=== PATIENT | female | born 1955 | race Caucasian/White ===

== ENCOUNTER 2018-01-28 08:05 | Day surgery (SDC) | payer OTHER ==
[~2018-01-28 08:05] MED LIST: AMLO5; ASPI81CH PO; ASPI81EC; CALGLU500; Coq-1030 MG PO; DIGO.25 PO; DILT180ER PO; EZET10-40 PO; FENO145 PO; FIBER GUMMIES1 EACH PO; FISH OIL PO; FISH1000; FLAX PO; GLUC500 PO; HYDACE5 PO; LISI20; LISI20 PO; LORA1 PO; METO50ER PO; MULVITMINF; Multi-Day Vita1 EACH PO; PROM25 PO; PSYL5.85P; RED YEAST RICE PO; ROXICODONE5 MG PO; XARELTO20 MG PO; [UNRECOGNIZED DRUG - REMARK]
[2018-02-01] MEDS ORDERED: POTCHL10ER PO (13:38)
[2018-02-01] MEDS ORDERED: FURO40 PO (13:38)
== END 2018-01-28 22:50 | disposition home or self-care (01) ==
LOC: MOI MAM 08:05
PROC: BH01ZZZ Plain Radiography of Left Breast (ICD-10-PCS; principal; 2018-01-28)
DX: C50.912 Malignant neoplasm of unspecified site of left female breast (principal)
CPT/HCPCS: 19281

== ENCOUNTER → 2018-07-06 | Outpatient (CLI) | payer OTHER ==
[~2018-07-06] MED LIST changes: +FURO40 PO; +POTCHL10ER PO
== END | disposition home or self-care (01) ==
LOC: LAB SHORT 10:59 → PLD 10:59
DX: D22.5 Melanocytic nevi of trunk (principal)
CPT/HCPCS: 88305

== ENCOUNTER → 2019-01-06 | Outpatient (CLI) | payer OTHER ==
[2019-01-06 13:51] LABS: BASOPHILS ABSOLUTE AUTO 0.05 K/mm3 (0.00-0.23); BASOPHILS PERCENT AUTO 1 % (0-2); EOSINOPHILS ABSOLUTE AUTO 0.03 K/mm3 (0.00-0.68); EOSINOPHILS PERCENT AUTO 1 % (0-6); Hematocrit 44.3 % (33.0-51.0); Hemoglobin 14.7 g/dL (11.5-16.0); IMMATURE GRAN ABSOLUTE AUTO 0.04 K/mm3 (0.00-0.10); IMMATURE GRAN PERCENT AUTO 1 % (0-1); LYMPHOCYTES ABSOLUTE AUTO 1.03 K/mm3 (0.84-5.20); LYMPHOCYTES PERCENT AUTO 18 % (21-46); MONOCYTES ABSOLUTE AUTO 0.55 K/mm3 (0.16-1.47); MONOCYTES PERCENT AUTO 10 % (4-13); Mean Corpuscular HGB 31.6 pg (26.0-34.0); Mean Corpuscular HGB Conc 33.2 g/dL (31.5-36.5); Mean Corpuscular Volume 95 fL (80-100); Mean Platelet Volume 11.1 fL (9.1-12.4); NEUTROPHILS ABSOLUTE AUTO 3.92 K/mm3 (1.96-9.15); NEUTROPHILS PERCENT AUTO 70 % (41-73); Platelet Count 232 K/mm3 (150-400); RDW Coefficient Variation 12.5 % (11.7-14.2); RDW Standard Deviation 43.7 fL (35.1-46.3); Red Blood Cell Count 4.65 M/mm3 (3.80-5.20); White Blood Cell Count 5.62 K/mm3 (4.00-11.30)
[2019-01-06 14:09] LABS: Alanine Aminotransfer (ALT/SGP 64 U/L (12-78); Albumin, Blood 4.1 g/dL (3.4-5.0); Albumin/Globulin Ratio 1.1 (0.8-1.8); Alk Phos 83 U/L (50-136); Anion Gap 9 mmol/L (6-16); Aspartate Aminotrans (AST/SGOT 63 U/L (12-37); Bilirubin, Total 0.9 mg/dL (0.1-1.0); Blood Urea Nitrogen 12 mg/dL (8-24); Bun/Creatinine Ratio 15.7 (12.0-20.0); CHOL/HDL RATIO 5.8; CO2, Blood 28 mmol/L (21-32); Chloride, Blood 97 mmol/L (98-108); Cholesterol 328 mg/dL (50-200); Creatinine, Blood 0.76 mg/dL (0.40-1.00); Globulin, Blood 3.9 g/dL (2.2-4.0); Glomerular Filtration Rate >60 (60-); Glucose, Blood 99 mg/dL (70-99); HDL Cholesterol 57 mg/dL (>39); Potassium, Blood 4.4 mmol/L (3.5-5.5); Sodium, Blood 134 mmol/L (136-145); Very Low Density Lipoprot Chol 42 mg/dL (6-32)
[2019-01-06 14:10] LABS: Low Density Lipoprotein Chol 229 mg/dL (0-110); Triglycerides 211 mg/dL (30-160)
== END | disposition home or self-care (01) ==
LOC: EDSTATUS 11:19 → LAB 13:20 → LAB SHORT 13:20
PROVIDERS: Hospitalist
DX: E78.2 Mixed hyperlipidemia (principal); I10 Essential (primary) hypertension
CPT/HCPCS: 80053; 80061; 85025

== ENCOUNTER 2019-02-08 08:07 | Day surgery (SDC) | payer OTHER ==
[~2019-02-08] VITALS: Ht 165.1 cm; Wt 87.0 kg
--- NOTE | 2019-02-08 09:23 | NUR ---
02/08/19 0923 Nataliya Gregorio 1 MISSED IV BY LORENA IN RH VALVE 1 GOOD IV IN RW BY LORENA PT TOW
== END 2019-02-08 10:35 | disposition home or self-care (01) ==
LOC: ORSCSDS 08:07
PROVIDERS: Internal Medicine Gastroenterology
PROC: 0DBK8ZX Excision of Ascending Colon, Via Natural or Artificial Opening Endoscopic, Diagnostic (ICD-10-PCS; principal; 2019-02-08 09:30)
PROC: 0DBN8ZX Excision of Sigmoid Colon, Via Natural or Artificial Opening Endoscopic, Diagnostic (ICD-10-PCS; principal; 2019-02-08 09:30)
DX: Z12.11 Encounter for screening for malignant neoplasm of colon (principal); D12.2 Benign neoplasm of ascending colon; D12.5 Benign neoplasm of sigmoid colon; K57.30 Diverticulosis of large intestine without perforation or abscess without bleeding; K64.8 Other hemorrhoids; I10 Essential (primary) hypertension; Z87.891 Personal history of nicotine dependence; Z79.899 Other long term (current) drug therapy
CPT/HCPCS: 88305; J0330; J0461; J2405; J2704; J7120

== ENCOUNTER 2020-11-20 21:28 | Inpatient (IN) | payer OTHER ==
[~2020-11-20] VITALS: Ht 165.1 cm; Wt 77.6 kg
[~2020-11-20 21:28] MED LIST changes: -DIGO.25 PO; +DIGOX250 MCG PO; +DILTIAZEM 24HR240 M3 PO; +FURO20 PO; +MULTI VITAMIN1 EACH PO; -Multi-Day Vita1 EACH PO; +POTA10T PO; +XARELTO20 M1 PO
[2020-11-20] MEDS ORDERED: MERIBIN5 M1 PO (21:55)
[2020-11-21 00:45] LABS: BASOPHILS ABSOLUTE AUTO 0.05 K/mm3 (0.00-0.23); BASOPHILS PERCENT AUTO 1 % (0-2); EOSINOPHILS ABSOLUTE AUTO 0.01 K/mm3 (0.00-0.68); EOSINOPHILS PERCENT AUTO 0 % (0-6); Hematocrit 31.8 % (33.0-51.0); Hemoglobin 10.9 g/dL (11.5-16.0); IMMATURE GRAN ABSOLUTE AUTO 0.05 K/mm3 (0.00-0.10); IMMATURE GRAN PERCENT AUTO 1 % (0-1); LYMPHOCYTES ABSOLUTE AUTO 1.26 K/mm3 (0.84-5.20); LYMPHOCYTES PERCENT AUTO 15 % (21-46); MONOCYTES ABSOLUTE AUTO 0.61 K/mm3 (0.16-1.47); MONOCYTES PERCENT AUTO 7 % (4-13); Mean Corpuscular HGB 31.9 pg (26.0-34.0); Mean Corpuscular HGB Conc 34.3 g/dL (31.5-36.5); Mean Corpuscular Volume 93 fL (80-100); Mean Platelet Volume 10.6 fL (9.1-12.4); NEUTROPHILS ABSOLUTE AUTO 6.46 K/mm3 (1.96-9.15); NEUTROPHILS PERCENT AUTO 77 % (41-73); Platelet Count 252 K/mm3 (150-400); RDW Coefficient Variation 12.7 % (11.7-14.2); RDW Standard Deviation 43.1 fL (35.1-46.3); Red Blood Cell Count 3.42 M/mm3 (3.80-5.20); White Blood Cell Count 8.44 K/mm3 (4.00-11.30)
[2020-11-21 01:00] LABS: Alanine Aminotransfer (ALT/SGP 51 U/L (12-78); Albumin, Blood 3.3 g/dL (3.4-5.0); Albumin/Globulin Ratio 0.9 (0.8-1.8); Alk Phos 79 U/L (50-136); Anion Gap 13 mmol/L (6-16); Aspartate Aminotrans (AST/SGOT 55 U/L (12-37); Bilirubin, Total 0.5 mg/dL (0.1-1.0); Blood Urea Nitrogen 4 mg/dL (8-24); Bun/Creatinine Ratio 7.6 (12.0-20.0); CO2, Blood 23 mmol/L (21-32); Calcium, Blood 8.3 mg/dL (8.5-10.1); Chloride, Blood 102 mmol/L (98-108); Creatinine, Blood 0.53 mg/dL (0.40-1.00); Ethanol (Alcohol), Blood, Med 286 mg/dL; Globulin, Blood 3.8 g/dL (2.2-4.0); Glomerular Filtration Rate >60 (60-); Glucose, Blood 82 mg/dL (70-99); Potassium, Blood 3.7 mmol/L (3.5-5.5); Sodium, Blood 138 mmol/L (136-145); Total Protein, Blood 7.1 g/dL (6.4-8.2); Troponin I 0.034 ng/mL (0.000-0.040)
--- NOTE | 2020-11-21 04:54 | NUR ---
ADMIT & SHIFT SUMMARY PT TO UNIT FROM ED. AXO BUT NOTED TO BE UNDE THE INFLUENCE, ETHYL ALCOHOL >200 UPON ADMISSION. PT COOPERATIVE AND NONIMPULSIVE AND ANSWERS MOST QUESTIONS APPROPRIATELY. PT ON CARDIZRM GTT 5 ON ADMISSION, QUICKLY TITRATED UP JORGE ALBERTO 15MG/HR TO MAINTAIN HR <120. BP STABLE WITH THIS. PT ON RA. ADMISSION COMPLETED TO [facility] OF ABILITY GIVEN PT COGNITIVE STATUS. PT ASYMPTOMATIC TO AFIB. STATES HAVING "6 GLASSES OF WINE" BEFORE BEING ADMITTED. BED ALARM IN PLACE AND PT UNDERSTANDING OF THIS. KCL INFUSING ALONG WITH BANNANA BAG. NEW IV PLACED. PT EDUCATED TO HOSITAL POLICY/PROTOCOL. PT RESTING SINCE ADMISSION COMPLETED. WILL CONTINUE TO MONITOR UNTIL SHIFT CHANGE.
[2020-11-21 06:22] LABS: BASOPHILS ABSOLUTE AUTO 0.04 K/mm3 (0.00-0.23); BASOPHILS PERCENT AUTO 1 % (0-2); EOSINOPHILS ABSOLUTE AUTO 0.01 K/mm3 (0.00-0.68); EOSINOPHILS PERCENT AUTO 0 % (0-6); Hematocrit 32.2 % (33.0-51.0); Hemoglobin 11.1 g/dL (11.5-16.0); IMMATURE GRAN ABSOLUTE AUTO 0.03 K/mm3 (0.00-0.10); IMMATURE GRAN PERCENT AUTO 0 % (0-1); LYMPHOCYTES ABSOLUTE AUTO 1.03 K/mm3 (0.84-5.20); LYMPHOCYTES PERCENT AUTO 14 % (21-46); MONOCYTES ABSOLUTE AUTO 0.46 K/mm3 (0.16-1.47); MONOCYTES PERCENT AUTO 6 % (4-13); Mean Corpuscular HGB 31.8 pg (26.0-34.0); Mean Corpuscular HGB Conc 34.5 g/dL (31.5-36.5); Mean Corpuscular Volume 92 fL (80-100); Mean Platelet Volume 9.5 fL (9.1-12.4); NEUTROPHILS ABSOLUTE AUTO 6.05 K/mm3 (1.96-9.15); NEUTROPHILS PERCENT AUTO 80 % (41-73); Platelet Count 208 K/mm3 (150-400); RDW Coefficient Variation 12.8 % (11.7-14.2); Red Blood Cell Count 3.49 M/mm3 (3.80-5.20); White Blood Cell Count 7.62 K/mm3 (4.00-11.30)
[2020-11-21 06:41] LABS: Alanine Aminotransfer (ALT/SGP 47 U/L (12-78); Albumin, Blood 3.2 g/dL (3.4-5.0); Albumin/Globulin Ratio 0.8 (0.8-1.8); Alk Phos 75 U/L (50-136); Anion Gap 11 mmol/L (6-16); Aspartate Aminotrans (AST/SGOT 51 U/L (12-37); Bilirubin, Total 0.6 mg/dL (0.1-1.0); Blood Urea Nitrogen 4 mg/dL (8-24); Bun/Creatinine Ratio 7.8 (12.0-20.0); CO2, Blood 23 mmol/L (21-32); CPK Creatine Kinase 127 U/L (26-193); Calcium, Blood 8.2 mg/dL (8.5-10.1); Chloride, Blood 104 mmol/L (98-108); Creatinine, Blood 0.52 mg/dL (0.40-1.00); Globulin, Blood 3.8 g/dL (2.2-4.0); Glomerular Filtration Rate >60 (60-); Glucose, Blood 88 mg/dL (70-99); Potassium, Blood 4.2 mmol/L (3.5-5.5); Sodium, Blood 138 mmol/L (136-145); Troponin I 0.032 ng/mL (0.000-0.040)
[2020-11-21 06:58] LABS: Digoxin (Lanoxin) 0.21 ug/mL (0.80-2.00)
--- NOTE | 2020-11-21 08:40 | NUR ---
CARDIZEM DECREASED 10ML/HR FOR HR NOW 90-110.
--- NOTE | 2020-11-21 13:48 | NUR ---
CARDIZEM DECREASED TO 5ML/HR FOLLOWING SECOND DIG LOADING DOSE. CURRENT RATE 90-110.
--- NOTE | 2020-11-21 15:17 | NUR ---
echocardiogram complete
[2020-11-21 15:27] LABS: Troponin I 0.022 ng/mL (0.000-0.040)
--- NOTE | 2020-11-21 17:56 | NUR ---
SHIFT SUMMARY: ASSUMED CARE AT 0700, REPORT FROM CAROLYN MUIR. A/A/OX3 WITH INTERMITANT CONFUSION. CIWA 5-9, MEDICATING PER ORDERS. UNABLE TO URINATE DURING SHIFT, BLADDER SCAN ORDERED Q6 WITH STRAIGHT CATH >450. STRAIGHT CATH DURING SHIFT X1. REPOSITIONS SELF IN BED BUT UNABLE TO STAND OR SIT UNASSISTED DUE TO TREMORS. INTERMITANT CONFUSION IN AFTERNOON. VSS, REMAINS IN AFIB WITH HR 80-90. DIG LOADED TODAY PER ORDERS. SARAH PERSAUD DC'D AT 1430. WILL CONTINUE TO TREAT AND MONITOR UNTIL CHANGE OF SHIFT.
[2020-11-22 04:03] LABS: BASOPHILS ABSOLUTE AUTO 0.02 K/mm3 (0.00-0.23); BASOPHILS PERCENT AUTO 0 % (0-2); EOSINOPHILS ABSOLUTE AUTO 0.04 K/mm3 (0.00-0.68); EOSINOPHILS PERCENT AUTO 1 % (0-6); IMMATURE GRAN ABSOLUTE AUTO 0.02 K/mm3 (0.00-0.10); IMMATURE GRAN PERCENT AUTO 0 % (0-1); LYMPHOCYTES ABSOLUTE AUTO 0.53 K/mm3 (0.84-5.20); LYMPHOCYTES PERCENT AUTO 9 % (21-46); MONOCYTES ABSOLUTE AUTO 0.41 K/mm3 (0.16-1.47); MONOCYTES PERCENT AUTO 7 % (4-13); Mean Corpuscular HGB 31.2 pg (26.0-34.0); Mean Corpuscular HGB Conc 33.3 g/dL (31.5-36.5); Mean Corpuscular Volume 94 fL (80-100); Mean Platelet Volume 9.6 fL (9.1-12.4); NEUTROPHILS ABSOLUTE AUTO 5.17 K/mm3 (1.96-9.15); NEUTROPHILS PERCENT AUTO 84 % (41-73); Platelet Count 157 K/mm3 (150-400); RDW Coefficient Variation 12.6 % (11.7-14.2); Red Blood Cell Count 3.21 M/mm3 (3.80-5.20); White Blood Cell Count 6.19 K/mm3 (4.00-11.30)
[2020-11-22 04:25] LABS: Albumin, Blood 2.8 g/dL (3.4-5.0); Anion Gap 6 mmol/L (6-16); Blood Urea Nitrogen 5 mg/dL (8-24); Bun/Creatinine Ratio 8.8 (12.0-20.0); CO2, Blood 27 mmol/L (21-32); Calcium, Blood 8.3 mg/dL (8.5-10.1); Chloride, Blood 100 mmol/L (98-108); Creatinine, Blood 0.57 mg/dL (0.40-1.00); Glomerular Filtration Rate >60 (60-); Glucose, Blood 88 mg/dL (70-99); Magnesium, Blood 2.3 mg/dL (1.6-2.4); Phosphorus, Blood 3.5 mg/dL (2.5-4.9); Potassium, Blood 3.6 mmol/L (3.5-5.5); Sodium, Blood 133 mmol/L (136-145)
--- NOTE | 2020-11-22 05:14 | NUR ---
SHIFT SUMMARY PT WAS ALERT AND ORIENTED AT START OF SHIFT, ABLE TO ANSWER QUESTIONS APPROPRIATELY WITH MINIMAL CONFUSION. PT BECAME MORE CONFUSED AND AGITATED T/O THE NIGHT. PT BEGAN CALLING OUT FOR PEOPLE THAT WERE NOT AROUND AND TALKING RANDOMLY WITH NO MEANING. PT WAS TAKING HER CLOTHS OFF AND MOVING LEGS HER OFF OF THE BED IF SHE WERE GOING TO GET OUT OF BED. BED ALARM WAS ON. CIWA SCORES RANGED FROM 8 TO 12 WITH SCORES OF 12 THIS AM. PT HAD SIGNIFICANT TREMORS T/O THE NIGHT, DENIED ANY N/V OR HEADACHE. PRN MEDICATIONS WERE GIVEN TO AIDE WITH SYMPTOMS AND PT HAD A REDUCTION IN SYMPTOMS. PT WAS ABLE TO VOID ON THE BEDPAN ONE TIME AT START OF SHIFT, AFTER THAT PT WAS UNABLE TO VOID AND CONTINUOUSLY STSTING SHE HAD TO URINATE. PT WAS BLADDER SCANNED WITH THE LARGEST AMOUNT SHOWING AROUND 490ML, PT STATED SHE DOES NOT FEEL THE NEED TO VOID. VITALS STABLE. BP 147-151 SYSTOLIC. HR 80-90'S IN AFIB. O2 SATS 90'S ON ROOM AIR. PT CURRENTLY RESTING IN BED.
--- NOTE | 2020-11-22 18:07 | NUR ---
SHIFT SUMMARY PT HAS REMAINED ALERT AND ORIENTED TO SELF, PLACE, AND FOLLOWING DIRECTIONS. CIWA WAS AROUND 10 THIS AM AND HAS DECREASED TO 3 THIS AFTERNOON. VS STABLE. HR HAS BEEN AFIB IN THE 80'S. BP STABLE. PT DENIES ANY PAIN AT REST, BUT COMPLAINS OF PAIN TO RIGHT HIP WITH REPOSITIONING. PT UNABLE TO VOID THIS AM ON THE BED JOLLY AND WAS STRAIGHT CATHED. PT ABLE TO VOID ON BED JOLLY THIS EVENING. BED ALARM ON FOR SAFETY. WILL CONTINUE TO MONITOR CLOSELY AND REPORT TO ONCOMING RN. CALL LIGHT IN REACH.
[2020-11-23 04:00] LABS: Hematocrit 30.9 % (33.0-51.0); Hemoglobin 10.4 g/dL (11.5-16.0)
[2020-11-23 04:22] LABS: Albumin, Blood 2.5 g/dL (3.4-5.0); Anion Gap 7 mmol/L (6-16); Blood Urea Nitrogen 4 mg/dL (8-24); Bun/Creatinine Ratio 7.1 (12.0-20.0); CO2, Blood 26 mmol/L (21-32); Calcium, Blood 8.1 mg/dL (8.5-10.1); Chloride, Blood 103 mmol/L (98-108); Creatinine, Blood 0.56 mg/dL (0.40-1.00); Glomerular Filtration Rate >60 (60-); Glucose, Blood 79 mg/dL (70-99); Phosphorus, Blood 3.7 mg/dL (2.5-4.9); Potassium, Blood 3.6 mmol/L (3.5-5.5); Sodium, Blood 136 mmol/L (136-145)
--- NOTE | 2020-11-23 06:13 | NUR ---
SHIFT SUMMARY PT HAD MORE MILD WITHDRAW SYMPTOMS THAN PREVIOUS NOC SHIFT. HIGH CIWA SCORE OF 9 NEAR START OF SHIFT, LIBRIUM GIVEN AND PT SLEPT T/O THE REST OF THE NIGHT. THIS AM PT REPORTED FEELING WELL WITH NO SYMPTOMS. PT ABLE TO VOID URINE NEAR START OF SHIFT, UNABLE TO VOID T/O THE REST OF THE SHIFT. THIS AM BLADDERSCAN SHOWED >500ML, STRAIGHT CATHED PT AND HAD 700ML OUT. VITALS WERE STABLE WITH BP 140'S SYSTOLIC. HR 60-70'S. O2 SATS >95% ON ROOM AIR. PT HAD AN UNEVENTFUL NIGHT.
--- NOTE | 2020-11-23 17:00 | NUR ---
SUMMARY NO ACUTE CHANGES T/O SHIFT. CIWA 0 THIS AFTERNOON. VOIDED ONCE THIS SHIFT. STATED DOES NOT FEEL NEED TO GO AT THIS TIME, PLANNING TO ATTEMPT VOID AFTER DINNER. PLAN TO BS IF PT UNABLE TO VOID. CALL LIGHT IN REACH.
--- NOTE | 2020-11-24 05:47 | NUR ---
SHIFT SUMMARY PT HAD A QUIET UNEVENTFUL NIGHT. PT REPORTED FEELING BETTER THAN PREVIOUS NOC SHIFT WITH NO WITHDRAW SYMPTOMS. CIWA SCORES OF 0. NO PRN MEDICATIONS GIVEN FOR WITHDRAW. VITALS WERE STABLE WITH BP 130-140'S SYSTOLIC. HR WAS CONTROLLED AT 60-70'S. O2 SATS >90% ON ROOM AIR. PT UP TO BSC WITH TWO PERSON ASSIST. LEGS SHAKEY, PT WEAK BUT ABLE TO STAND AND PIVOT WITH WALKER. PT ABLE TO VOID URINE AT START OF SHIFT, BLADDER SCAN AT ABOUT 0200 SHOWED AROUND 200ML, PT UNABLE TO VOID. PT NOT DRINKING ANY FLUIDS DUE TO NOT WANTING TO HAVE TO URINATE. PT ENCOURAGED TO INCREASE FLUID INTAKE. PT REPORTED MINIMAL PAIN IN R SIDE WITH AMBULATION. PT HAD A RESTFUL NIGHT.
--- NOTE | 2020-11-24 18:05 | NUR ---
SHIFT SUMMARY PT A&Ox4;CALM AND COOPERAIVE WITH CARE. PT RESTING BED, REPOSITIONED IN BED WITH REMINDERS. PT DENIES PAIN, SOB, NASUEA AND DIZZINESS. PT WORKING WIHT PT, PLANS FOR PATIENT TO GO TO SNF, PT WOULD PREFER [facility] IF GIVEN THE CHOICE. CIWA <8 T/O SHIFT. PT URINATING T/O SHIFT. VSS NO OTHER ACUTE CHANGES NOTED. WILL CONTINUE TO MONITOR UNITL REPORT GIVEN TO ONCOMING RN.
--- NOTE | 2020-11-25 05:59 | NUR ---
SHIFT SUMMARY PT MEDICAL NO TELE STATUS. A&O X4. VSS. PULE IRREGULAR. SPO2 > 92% ON RA. PT DENIES PAIN/DISCOMFORT. CIWA: 2 THIS SHIFT D/T TREMORS ONLY. PT W/ NO DIFFICULTY URINATING, UP TO BSC MULTIPLE TIMES THIS SHIFT, SEE I/O FOR URINE OUTPUT. NO EVENTS OVER NIGHT.
[2020-11-25] MEDS ORDERED: ONDA4ODT MM (10:09)
[2020-11-25] MEDS ORDERED: TRAM50 PO (10:10)
[2020-11-25 11:18] LABS: Influenza A, PCR NEGATIVE (NEGATIVE); Influenza B, PCR NEGATIVE (NEGATIVE); Resp Syncytial Virus, PCR NEGATIVE (NEGATIVE); SARS-Cov-2 (COVID-19) PCR, MMC NEGATIVE (NEGATIVE)
[2020-11-25] MEDS ORDERED: SENN187 PO (11:58)
[2020-11-25] MEDS ORDERED: MIRALAX PO (11:58)
--- NOTE | 2020-11-25 15:46 | NUR ---
PT TRANSFER TO [facility]. VITAL SIGNS STABLE. ON ROOM AIR SATING ABOVE 92%. DENIES CHEST PAIN. NO ACUTE CHANGES. PT EXPRESSED SOME ANXIETY. REASSURANCE PROVIDED AND QUESTIONS ANSWERED ABOUT TRANSFER. UP IN CHAIR FOR MEALS AND BLADDER SCAN PRN NEEDED. PT ABLE TO VOID MULTIPLE TIMES IN BSC AND EMPTY BLADDER. SMALL BOWEL MOVMENT THIS AFTERNOON. DISCHARGE INSTRUCTIONS REVIEWED. PT TRANSFERED VIA WHEELCHAIR.
== END 2020-11-25 15:46 | DRG 897 ==
LOC: ER 21:28 → PCU 21:29
PROVIDERS: Emergency Medicine; Family Medicine; ADMIT Internal Medicine
PROC: HZ2ZZZZ Detoxification Services for Substance Abuse Treatment (ICD-10-PCS; principal; 2020-11-22)
DX: F10.220 Alcohol dependence with intoxication, uncomplicated (principal); E87.1 Hypo-osmolality and hyponatremia; F10.239 Alcohol dependence with withdrawal, unspecified; Z20.822 Contact with and (suspected) exposure to COVID-19; S09.90XA Unspecified injury of head, initial encounter; I48.91 Unspecified atrial fibrillation; D53.9 Nutritional anemia, unspecified; I10 Essential (primary) hypertension; M25.551 Pain in right hip; E78.5 Hyperlipidemia, unspecified; Z96.642 Presence of left artificial hip joint; Z88.8 Allergy status to other drugs, medicaments and biological substances; Z79.899 Other long term (current) drug therapy; Z79.01 Long term (current) use of anticoagulants; Z85.3 Personal history of malignant neoplasm of breast; Z90.12 Acquired absence of left breast and nipple; Z87.891 Personal history of nicotine dependence; Z90.89 Acquired absence of other organs; Z98.890 Other specified postprocedural states; W18.30XA Fall on same level, unspecified, initial encounter; Y90.8 Blood alcohol level of 240 mg/100 ml or more
CPT/HCPCS: 0241U; 36415; 51701; 70450; 72125; 72170; 80053; 80069; 80162; 82550; 83735; 84484; 85014; 85018; 85025; 93005; 93010; 93306; 96372; 96375; 96376; 97110; 97112; 97116; 97162; 97165; 97530; 97535; 99285-25; A9270; G0378; G0480; J1160; J1650; J2060; J3411; J3475; J3480; J7030; J7042

== ENCOUNTER 2021-08-20 08:52 | Day surgery (SDC) | payer MEDICARE, OTHER ==
[~2021-08-20] VITALS: Ht 165.1 cm; Wt 79.6 kg
[~2021-08-20 08:52] MED LIST changes: +DILT180 PO; +KLOR-CON 1010 ME2 PO; +LANOXIN PO; +Lisinopril10 MG PO; +MERIBIN5 M1 PO; +MIRALAX PO; +ONDA4ODT MM; +SENN187 PO; +TRAM50 PO
--- NOTE | 2021-08-20 09:47 | NUR ---
Ambulatory in Day Surgery History, Chart, Medications and Allergies reviewed before start of procedure. Lungs clear T/O to Auscultation. Pre-Op teaching done. Pt verbalizes understanding.
--- NOTE | 2021-08-20 15:26 | NUR ---
ARRIVED TO UNIT PT ABLE TO LIFT BOTH LEFTS, WIGGLE FEET. PPP. DRESSINGS TO R HIP CDI. DERMABOND INTACT. LCA. HR IRREG. PT REPORTS HX OF AFIB. BT HYPO X4. PT DENIES PAIN, N/V OR SOB. CALL LIGHT IN REACH. POLAR PACK ON HIP. FAMILY MEMBER AT BEDSIDE.
--- NOTE | 2021-08-20 15:55 | NUR ---
therapy in to work w/pt
--- NOTE | 2021-08-20 19:07 | NUR ---
REPORTED TO ONCOMING SHIFT.
--- NOTE | 2021-08-21 04:35 | NUR ---
SHIFT SUMMARY POD1 R BRITTNEE, A/OX4, VSS, TOLERATING PO, AMBULATES c MINIMAL ASSISTANCE, VOIDING WELL, PAIN WELL MANAGED PER EMAR, MINIMAL SWELLING AT SURGICAL SITE, POLAR PACK IN PLACE. NO ACUTE EVENTS THIS SHIFT, CALL LIGHT IN REACH, WILL CTM AND REPORT TO DAY RN.
[2021-08-21 06:34] LABS: BASOPHILS ABSOLUTE AUTO 0.04 K/mm3 (0.00-0.23); BASOPHILS PERCENT AUTO 0 % (0-2); EOSINOPHILS ABSOLUTE AUTO 0.15 K/mm3 (0.00-0.68); EOSINOPHILS PERCENT AUTO 2 % (0-6); Hematocrit 32.4 % (33.0-51.0); Hemoglobin 10.8 g/dL (11.5-16.0); IMMATURE GRAN ABSOLUTE AUTO 0.04 K/mm3 (0.00-0.10); IMMATURE GRAN PERCENT AUTO 0 % (0-1); LYMPHOCYTES ABSOLUTE AUTO 1.02 K/mm3 (0.84-5.20); LYMPHOCYTES PERCENT AUTO 10 % (21-46); MONOCYTES ABSOLUTE AUTO 0.76 K/mm3 (0.16-1.47); MONOCYTES PERCENT AUTO 8 % (4-13); Mean Corpuscular HGB 30.4 pg (26.0-34.0); Mean Corpuscular HGB Conc 33.3 g/dL (31.5-36.5); Mean Corpuscular Volume 91 fL (80-100); Mean Platelet Volume 10.6 fL (9.1-12.4); NEUTROPHILS ABSOLUTE AUTO 7.99 K/mm3 (1.96-9.15); NEUTROPHILS PERCENT AUTO 80 % (41-73); Platelet Count 213 K/mm3 (150-400); RDW Coefficient Variation 12.5 % (11.7-14.2); RDW Standard Deviation 41.7 fL (35.1-46.3); Red Blood Cell Count 3.55 M/mm3 (3.80-5.20)
[2021-08-21 07:28] LABS: Anion Gap 8 mmol/L (6-16); Blood Urea Nitrogen 10 mg/dL (8-24); Bun/Creatinine Ratio 14.7 (12.0-20.0); CO2, Blood 25 mmol/L (21-32); Calcium, Blood 8.6 mg/dL (8.5-10.1); Chloride, Blood 103 mmol/L (98-108); Creatinine, Blood 0.68 mg/dL (0.40-1.00); Glomerular Filtration Rate >60 (60-); Glucose, Blood 92 mg/dL (70-99); Magnesium, Blood 1.8 mg/dL (1.6-2.4); Sodium, Blood 136 mmol/L (136-145)
[2021-08-21] MEDS ORDERED: ENOX40I SC (09:41)
[2021-08-21] MEDS ORDERED: OXAYDO5 M1 PO (09:42)
[2021-08-21] MEDS ORDERED: Promethazine12.5 M1 PO (09:43)
--- NOTE | 2021-08-21 10:22 | NUR ---
DISCHARGING DC'D IV, CATHETER INTACT. REVIEWED DC INSTRUCTIONS/PT VERBALIZED UNDERSTANDING. PROVIDED IS AND INSTRUCTED ON USE. PROVIDED AQUACEL DRESSINGS. CALLED PRESCRIPTION FOR PHENERGAN IN TO [facility] PER PT REQUEST. DAUGHTER AT BEDSIDE.
--- NOTE | 2021-08-21 10:27 | NUR ---
DISCHARGED LEAVING UNIT IN WC W/POSSESSIONS, EQUIPMENT AND DC INSTRUCTIONS ACCOMPANIED BY DAUGHTER.
--- NOTE | 2021-08-22 15:23 | NUR ---
08/22/21 1523 Karla Woodard VERIFICATIONS: EDIT CHART.
== END 2021-08-21 10:28 | disposition home or self-care (01) ==
LOC: ORSCMMR 08:52 → EDSTATUS 10:30 → BC 10:30 → SURS 15:12 → ORSCMMR 08-21 10:28 → SURS 08-21 10:28
PROVIDERS: Orthopaedic Surgery
PROC: 8E0YXBZ Computer Assisted Procedure of Lower Extremity (ICD-10-PCS; principal; 2021-08-20 10:30)
PROC: 0SR90JA Replacement of Right Hip Joint with Synthetic Substitute, Uncemented, Open Approach (ICD-10-PCS; principal; 2021-08-20 10:30)
DX: M16.11 Unilateral primary osteoarthritis, right hip (principal); I48.91 Unspecified atrial fibrillation; I10 Essential (primary) hypertension; E78.5 Hyperlipidemia, unspecified; Z79.899 Other long term (current) drug therapy
CPT/HCPCS: 36415; 72170; 80048; 83735; 85025; 97110; 97110-CQ; 97116; 97116-CQ; 97161; 97166; 97530-CQ; 97535; A9270; C1713; C1776; J0171; J0690; J0735; J1650; J1885; J2250; J2370; J2704; J2795; J3010; J3370; J7120

== ENCOUNTER 2024-06-14 00:38 | Inpatient (IN) | payer MEDICARE, OTHER ==
[~2024-06-14] VITALS: Ht 162.6 cm; Wt 79.9 kg
[~2024-06-14 00:38] MED LIST changes: +ENOX40I SC; +OXAYDO5 M1 PO; +Promethazine12.5 M1 PO
[2024-06-14 02:35] LABS: Albumin, Blood 2.7 g/dL (3.4-5.0); Albumin/Globulin Ratio 0.6 (0.8-1.8); Bilirubin, Total 2.3 mg/dL (0.1-1.0); Bun/Creatinine Ratio 11.3 (12.0-20.0); Calcium, Blood 8.5 mg/dL (8.5-10.1); Creatinine, Blood 0.53 mg/dL (0.40-1.00); Globulin, Blood 4.7 g/dL (2.2-4.0); Potassium, Blood 4.1 mmol/L (3.5-5.5); Total Protein, Blood 7.4 g/dL (6.4-8.2)
[2024-06-14 02:45] LABS: BASOPHILS ABSOLUTE AUTO 0.04 K/mm3 (0.00-0.23); BASOPHILS PERCENT AUTO 0 % (0-2); EOSINOPHILS ABSOLUTE AUTO 0.01 K/mm3 (0.00-0.68); EOSINOPHILS PERCENT AUTO 0 % (0-6); Hematocrit 31.7 % (33.0-51.0); Hemoglobin 11.1 g/dL (11.5-16.0); IMMATURE GRAN ABSOLUTE AUTO 0.03 K/mm3 (0.00-0.10); IMMATURE GRAN PERCENT AUTO 0 % (0-1); LYMPHOCYTES ABSOLUTE AUTO 1.22 K/mm3 (0.84-5.20); LYMPHOCYTES PERCENT AUTO 13 % (21-46); MONOCYTES ABSOLUTE AUTO 0.86 K/mm3 (0.16-1.47); MONOCYTES PERCENT AUTO 9 % (4-13); Mean Corpuscular HGB 32.9 pg (26.0-34.0); Mean Corpuscular Volume 94 fL (80-100); Mean Platelet Volume 10.1 fL (9.1-12.4); NEUTROPHILS ABSOLUTE AUTO 7.02 K/mm3 (1.96-9.15); NEUTROPHILS PERCENT AUTO 77 % (41-73); Platelet Count 237 K/mm3 (150-400); RDW Coefficient Variation 15.4 % (11.7-14.2); RDW Standard Deviation 52.5 fL (35.1-46.3); Red Blood Cell Count 3.37 M/mm3 (3.80-5.20); White Blood Cell Count 9.18 K/mm3 (4.00-11.30)
[2024-06-14] MEDS ORDERED: Furosemide 10 MG / ML 2ML Vial IV ONE (07:25)
[2024-06-14] MEDS ORDERED: Metoprolol Succinate 50 MG TABCR PO ONE (08:00)
[2024-06-14] MEDS ORDERED: Digoxin 0.25 MG Tab PO ONE (08:00)
[2024-06-14] MEDS ORDERED: Acetaminophen 325 MG TABLET PO PRN (09:05)
[2024-06-14] MEDS ORDERED: FLU VACC TS2024-25(6MOS UP)/PF 45 MCG/0.5 ML SYRINGE IM SCH (09:05)
[2024-06-14] MEDS ORDERED: TraMADol HCl 50 MG Tab PO PRN (09:05)
[2024-06-14 12:25] LABS: Digoxin (Lanoxin) 1.12 ug/mL (0.80-2.00)
[2024-06-14 14:19] VITALS: BP 127/80
[2024-06-14] MEDS ORDERED: Folic Acid 1 MG TAB PO SCH (15:00)
[2024-06-14] MEDS ORDERED: ChlordiazePOXIDE 25 MG Cap PO PRN (15:00)
[2024-06-14] MEDS ORDERED: Thiamine HCl 100 MG Tab PO SCH (15:00)
[2024-06-14] MEDS ORDERED: Potassium Chloride 10 Meq Tablet SA PO SCH (17:00)
[2024-06-14] MEDS ORDERED: Furosemide 10 MG / ML 2ML Vial IV SCH (18:00)
[2024-06-14 18:22] VITALS: BP 127/82
--- NOTE | 2024-06-14 18:30 | NUR ---
ASSUMPTION OF CARE/SHIFT SUMMARY RECIEVED REPORT FROM SIGNING AGENT BLANCA AT 1325. PT ARRIVED TO U 17 AROUND 1400 VIA ER BED. TRANSFERED PT WITH SLIDE SHEET FROM ER BED TO PCU BED. PT ALERT AND ORIENTED, CALM, COOPERATIVE TO CARE, FORGETFUL AT TIMES. +4 PITTING EDEMA BILAT FROM UPPER THIGH TO ANKLES, WEEPING T/O, +3 PITTING EDEMA IN BILAT HR IN THE 80'S, AFIB, SBP STABLE, DENIES CHEST PAIN. +BS, FIRM, NONTENDER, PUREWICK IN PLACE FOR I/O MONITORING. PT GIVEN PO MEDS, PT COUGHED AND SPIT UP LIQUIDS, REEVALUATED WITH PTS DINNER AND SHE TOLERATED WELL WITH NO CHOKING, ALSO TOLERATED PO MEDS AT THIS POINT. IV TO R FA S/L. WILL CONTINUE TO DIUERESIS PT. WILL CONTINUE TO MONITOR PT AND REPORT TO CATTLE PRODUCERS RN.
[2024-06-14 19:51] VITALS: BP 105/78
[2024-06-14] MEDS ORDERED: Metoprolol Succinate 50 MG TABCR PO SCH (21:00)
[2024-06-14 23:56] VITALS: BP 124/75
[2024-06-15 03:47] VITALS: BP 111/71
[2024-06-15 04:10] LABS: BASOPHILS ABSOLUTE AUTO 0.04 K/mm3 (0.00-0.23); BASOPHILS PERCENT AUTO 1 % (0-2); EOSINOPHILS ABSOLUTE AUTO 0.04 K/mm3 (0.00-0.68); EOSINOPHILS PERCENT AUTO 1 % (0-6); Hemoglobin 11.1 g/dL (11.5-16.0); IMMATURE GRAN ABSOLUTE AUTO 0.03 K/mm3 (0.00-0.10); IMMATURE GRAN PERCENT AUTO 0 % (0-1); LYMPHOCYTES PERCENT AUTO 14 % (21-46); MONOCYTES ABSOLUTE AUTO 0.87 K/mm3 (0.16-1.47); MONOCYTES PERCENT AUTO 10 % (4-13); Mean Corpuscular HGB 32.6 pg (26.0-34.0); Mean Corpuscular HGB Conc 34.7 g/dL (31.5-36.5); Mean Corpuscular Volume 94 fL (80-100); Mean Platelet Volume 9.9 fL (9.1-12.4); NEUTROPHILS ABSOLUTE AUTO 6.62 K/mm3 (1.96-9.15); NEUTROPHILS PERCENT AUTO 75 % (41-73); Platelet Count 188 K/mm3 (150-400); RDW Coefficient Variation 15.6 % (11.7-14.2); RDW Standard Deviation 53.6 fL (35.1-46.3)
[2024-06-15 04:32] LABS: Bun/Creatinine Ratio 18.6 (12.0-20.0); Calcium, Blood 8.7 mg/dL (8.5-10.1); Creatinine, Blood 0.54 mg/dL (0.40-1.00); Potassium, Blood 3.5 mmol/L (3.5-5.5)
--- NOTE | 2024-06-15 06:01 | NUR ---
SHIFT SUMMARY NO ACUTE CHANGES DURING NOC. SLEPT INTERMITTENTLY. ROUSES EASILY TO VERBAL STIMULI. ALERT AND ORIENTED, BUT IS OCCASIONALLY FORGETFUL. DENIES C/O SOB OR DYSPNEA THIS AM. DENIES C/O PAIN OR DISCOMFORT. RA SATS WNL T/O NOC. VSS. AFIB, RATE 60s-80s. AFEBRILE. CONTINUES WITH SIGNIFICANT BLE EDEMA, WEEPING IN SOME PLACES. VOIDING WITHOUT DIFFICULTY- PUREWICK IN PLACE. PT ENCOURAGED TO REPOSITION IN BED, BUT REFUSES AT TIMES. WILL REPORT TO ONCOMING RN WHEN AVAILABLE.
[2024-06-15 08:53] VITALS: BP 117/74
[2024-06-15] MEDS ORDERED: Enoxaparin 40 MG/0.4 ML SYR SC SCH (09:00)
--- NOTE | 2024-06-15 10:45 | NUR ---
ASSUMPTION OF CARE PT ALERT AND ORIENTED, CALM, COOPERATIVE TO CARE, FORGERTFUL AT TIMES. SCATTERED BRUISING T/O, BILATERAL +4 PITTING EDEMA FROM ANKLES-UPPER THIGH, BILATERAL +3 PITTING EDEMA OF FEET, WEEPING NOTED T/O. AFIB, 70'S-90'S, SBP STABLE, DENIES CP/PRESSURE, L/S DIM T/O, PUREWICK IN PLACE, FOR I/O MONITORING. PT AMBULATING AROUND UNIT WITH PT, TOLERATED WELL. DIUERESING WELL. PT DENIES ANY QUESTIONS OR CONCERNS AT THIS TIME, WILL CONTINUE TO MONITOR PT.
[2024-06-15 12:34] VITALS: BP 106/74
--- NOTE | 2024-06-15 15:46 | NUR ---
TRANSFER: REPORT GIVEN TO MEDICAL FLOOR RN, PT TO TRANSFER TO 361.
[2024-06-15] MEDS ORDERED: Potassium Chloride 10 Meq Tablet SA PO SCH (17:00)
[2024-06-15] MEDS ORDERED: Furosemide 10 MG/ML 4ML Vial IV SCH (18:00)
--- NOTE | 2024-06-15 18:53 | NUR ---
TRANSFER NOTE: PATIENT ARRIVED TO THE UNIT FROM PCU AT 1600. PATIENT ARRIVED VIA BED; WE SWTICHED OUT BEDS. PATIENT ALERT AND NO SIGNS OR SYMPTOMS OF DISTRESS, SETTLED/ORIENTED TO ROOM AND UNIT. SHE APPEARS FORGETFUL; MISPLACING BELONGINS. REPORTS OF MISSING ITEMS; BAG/CLOTHES/MEDS/WALKER AND FIT BIT WATCH. CALL MADE DOWN TO PCU INQUIRING ABOUT BELONGINGS. PCU STATES THAT THE BELONGINGS WERE MISPLACED IN THE ER AND THAT THERE ARE NO FINDSINGS OF A FITBIT. PATIENT DOES HAVE A BAG OF CLOTHES WITH SHOES, A PURSE, PHONE, AN IPAD AND X2 CHARGERS THAT CAME UP WITH HER FROM PCU.
[2024-06-15 20:04] VITALS: BP 97/59
[2024-06-16 03:48] VITALS: BP 102/64
--- NOTE | 2024-06-16 05:00 | NUR ---
SHIFT SUMMARY. PATIENT IS A&OX4. PATIENT IS PLEASANT AND ABLE TO MAKE HER NEEDS KNOWN. PATIENT WILL CALL OUT AT TIMES. PATIENT USING A PUREWICK D/T INCONTINENCE WHEN ON THE DIURETICS. PATIENT UP TO THE BATHROOM THIS SHIFT WITH 1P SBA. PATIENT SLEPT OFF AND ON T/O NIGHT WITH RESPIRATIONS EQUAL AND UNLABORED. NO ACUTE CHANGES NOTED T/O NIGHT. BED IS LOCKED IN THE LOWEST POSITION WITH CALL LIGHT IN REACH. CARE IS ONGOING.
[2024-06-16 07:29] VITALS: BP 112/73
[2024-06-16] MEDS ORDERED: Metolazone 2.5 MG Tab PO SCH (09:00)
[2024-06-16 10:40] LABS: Bun/Creatinine Ratio 19.4 (12.0-20.0); Calcium, Blood 9.1 mg/dL (8.5-10.1); Creatinine, Blood 0.57 mg/dL (0.40-1.00); Potassium, Blood 3.2 mmol/L (3.5-5.5)
[2024-06-16 15:03] VITALS: BP 108/67
--- NOTE | 2024-06-16 16:33 | NUR ---
SHIFT SUMMARY: NO EVENTS OR CHANGES WITH THE PATIENT THROUGHOUT THE SHIFT. SHE CONTINUES TO GET DIUERESED; RESPONDING WELL. MONITORING I&O AND GOT DAILY WEIGHT. PATIENT WORKING WITH PT AND OT. SHE IS CURRENTLY IN BED, ALERT, CALL LIGHT WITHIN REACH, NO SIGNS OR SYMPTOMS OF DISTRESS, FORGETFUL. PLAN OF CARE ONGOING.
[2024-06-16 19:40] VITALS: BP 103/68
[2024-06-17 03:26] VITALS: BP 108/58
--- NOTE | 2024-06-17 04:15 | NUR ---
SHIFT SUMMARY PATIENT HAD NO ACUTE CHANGES. AXOX 3 FORGETFUL AT TIMES. ONE ASSIST FWW TO BSC. PIV INTACT. DENIES CHEST PAIN, SOB, AND N/V. VSS/AFEBRILE. HELD METOPROLOL XL WITH SBP <110. BP 103/68. PUREWICK IN PLACE FOR I & O'S. CALL LIGHT IN REACH. BED IN LOWEST POSITION. WILL CONTINUE TO MONITOR UNTIL DAY SHIFT NURSE ASSUMES CARE.
[2024-06-17 07:12] LABS: BASOPHILS ABSOLUTE AUTO 0.02 K/mm3 (0.00-0.23); BASOPHILS PERCENT AUTO 0 % (0-2); EOSINOPHILS ABSOLUTE AUTO 0.12 K/mm3 (0.00-0.68); EOSINOPHILS PERCENT AUTO 2 % (0-6); Hematocrit 29.7 % (33.0-51.0); Hemoglobin 10.5 g/dL (11.5-16.0); IMMATURE GRAN ABSOLUTE AUTO 0.02 K/mm3 (0.00-0.10); IMMATURE GRAN PERCENT AUTO 0 % (0-1); LYMPHOCYTES ABSOLUTE AUTO 1.47 K/mm3 (0.84-5.20); LYMPHOCYTES PERCENT AUTO 22 % (21-46); MONOCYTES PERCENT AUTO 9 % (4-13); Mean Corpuscular HGB 32.9 pg (26.0-34.0); Mean Corpuscular HGB Conc 35.4 g/dL (31.5-36.5); Mean Corpuscular Volume 93 fL (80-100); Mean Platelet Volume 10.4 fL (9.1-12.4); NEUTROPHILS ABSOLUTE AUTO 4.53 K/mm3 (1.96-9.15); NEUTROPHILS PERCENT AUTO 67 % (41-73); Platelet Count 160 K/mm3 (150-400); RDW Coefficient Variation 15.1 % (11.7-14.2); RDW Standard Deviation 50.7 fL (35.1-46.3); Red Blood Cell Count 3.19 M/mm3 (3.80-5.20); White Blood Cell Count 6.76 K/mm3 (4.00-11.30)
[2024-06-17 07:34] VITALS: BP 119/72
[2024-06-17 07:55] LABS: Bun/Creatinine Ratio 15.5 (12.0-20.0); Calcium, Blood 8.5 mg/dL (8.5-10.1); Creatinine, Blood 0.58 mg/dL (0.40-1.00); Potassium, Blood 2.7 mmol/L (3.5-5.5)
[2024-06-17] MEDS ORDERED: Potassium Chloride 10 Meq Tablet SA PO SCH (09:30)
[2024-06-17] MEDS ORDERED: Potassium Chl 20MEQ/Water100ML 100 ML IV STA (09:33)
[2024-06-17] MEDS ORDERED: NS 250 ML IV PRN (09:55)
[2024-06-17 15:22] VITALS: BP 110/66
[2024-06-17 16:50] LABS: Magnesium, Blood 1.3 mg/dL (1.6-2.4); Potassium, Blood 2.9 mmol/L (3.5-5.5)
[2024-06-17] MEDS ORDERED: Magnesium Sulf 2 GM/Water 50ML 50 ML IV ONE (17:00)
[2024-06-17] MEDS ORDERED: Potassium Chloride 10 Meq Tablet SA PO ONE (17:00)
--- NOTE | 2024-06-17 17:00 | NUR ---
SHIFT SUMMARY: NO EVENTS OR CHANGES WITH THE PATIENT THROUGHOUT THE SHIFT. WE CONTINUE TO DIUERES HER WITH IV LASIX. PATIENT CONTIUES TO HAVE GOOD OUTPUT AND SHOWING IMPROVEMENTS WITH HER EDEMA AND WEIGHT. PATIENT GETTING SUPPLEMENT FOR ELECTROLYTE IMBALANCES. SHE IS A&OX4/FORGETFUL, PLEASANT AND COOPERATIVE. WORKED WITH PT TODAY. SHE IS IN BED, CALL LIGHT WITHIN REACH, NO SIGNS OR SYMPTOMS OF DISTRESS, PLAN OF CARE ONGOING.
[2024-06-17 19:46] VITALS: BP 104/60
--- NOTE | 2024-06-18 04:25 | NUR ---
SHIFT SUMMARY PATIENT HAD NO ACUTE CHANGES. AXOX 3 FORGETFUL AT TIMES. DENIES CHEST PAIN, SOB, AND N/V. PIV INTACT. PUREWICK IN PLACE FOR I & O'S. VSS/AFEBRILE. ONE ASSIST W/FWW TO BSC. COOPERATIVE WITH CARE. CALL LIGHT IN REACH. BED IN LOWEST POSITION. WILL CONTINUE TO MONITOR UNTIL DAY SHIFT NURSE ASSUMES CARE.
[2024-06-18 04:37] VITALS: BP 118/81
[2024-06-18 07:35] VITALS: BP 110/81
[2024-06-18 08:06] LABS: Bun/Creatinine Ratio 14.5 (12.0-20.0); Calcium, Blood 8.5 mg/dL (8.5-10.1); Creatinine, Blood 0.55 mg/dL (0.40-1.00); Magnesium, Blood 1.3 mg/dL (1.6-2.4); Potassium, Blood 2.9 mmol/L (3.5-5.5)
[2024-06-18] MEDS ORDERED: Magnesium Sulf 2 GM/Water 50ML 50 ML IV ONE (08:30)
[2024-06-18] MEDS ORDERED: Potassium Chloride 20 MEQ TabCR PO ONE (09:00)
[2024-06-18] MEDS ORDERED: Furosemide 40 MG Tab PO SCH (09:00)
[2024-06-18] MEDS ORDERED: Famotidine 20 MG Tab PO SCH (13:00)
--- NOTE | 2024-06-18 13:00 | NUR ---
pt c/o heart burn that began earlier, after breakfast. pt denies chest pain, states she believes it is related to something she ate. dr. herzog notified. emar updated
[2024-06-18 14:02] LABS: Bun/Creatinine Ratio 13.5 (12.0-20.0); Calcium, Blood 8.8 mg/dL (8.5-10.1); Creatinine, Blood 0.67 mg/dL (0.40-1.00); Potassium, Blood 2.9 mmol/L (3.5-5.5)
[2024-06-18] MEDS ORDERED: Potassium Chl 20MEQ/Water100ML 100 ML IV SCH (15:00)
[2024-06-18 15:16] VITALS: BP 124/87
--- NOTE | 2024-06-18 17:33 | NUR ---
PT IS ALERT AND ORIENTED X4 ABLE TO MAKE NEEDS KNOWN. ELECTROLYTES REPLACED THROUGHOUT SHIFT. PT DENIES CHEST PAIN, SOB. PT IS SBA WITH FWW TO BATHROOM AND DID WALK WITH MORTGAGE LOAN CLOSER APPROC 200 FEET THIS SHIFT. +1 EDEMA TO BLE.
[2024-06-18 20:23] VITALS: BP 115/77
[2024-06-19 02:14] VITALS: BP 111/73
--- NOTE | 2024-06-19 04:00 | NUR ---
SHIFT SUMMARY PATIENT HAD NO ACUTE CHANGES. AXOX 4 AND SBA FWW TO BR. IV K+ INFUSING FROM DAY SHIFT BAG 2 OF 3 AND 11/06 COMPLETED NEXT. PIV INTACT. DENIES CHEST PAIN, SOB, AND N/V. VSS/AFEBRILE. COOPERATIVE WITH CARE. CALL LIGHT IN REACH. BED IN LOWEST POSITION. WILL CONTINUE TO MONITOR UNTIL DAY SHIFT NURSE ASSUMES CARE.
[2024-06-19 07:40] VITALS: BP 138/98
[2024-06-19 09:02] LABS: Bun/Creatinine Ratio 15.8 (12.0-20.0); Calcium, Blood 8.6 mg/dL (8.5-10.1); Creatinine, Blood 0.63 mg/dL (0.40-1.00)
[2024-06-19] MEDS ORDERED: Potassium Chl 20MEQ/Water100ML 100 ML IV SCH (09:30)
[2024-06-19 15:19] VITALS: BP 130/74
--- NOTE | 2024-06-19 17:28 | NUR ---
SHIFT SUMMARY; PATIENT HAS LOW POTTASSIUM TODAY OF 3.0 RECEIVED IV KCL AND PO POTTASSIUM FOR SAME. DECISION TO KEEP HER ONE MORE DAY. PATIENT HAS PLEASANT AFFECT. SHE IS INDPENDANT TO BATHROOM ONLY NEEDING ASSIST WHEN HOOKED TO IV MEDS. HER VITAL SIGNS ARE STABKE AND WNL. SHE DENIES ANY PAIN OR DISCOMFORT. HAS PLEASANT AFFECT AND IS COOPERATIVE WITH CARE. WILLCONTINUE TO MONITOR CLOSELY UNTIL REPORT AND HAND OFF TO NOC SHIFT RN.
[2024-06-19 20:16] VITALS: BP 103/66
[2024-06-19] MEDS ORDERED: Famotidine 20 MG Tab PO SCH (21:00)
[2024-06-20] MEDS ORDERED: Mineral Oil 133 ML Enema PR ONE (01:25)
[2024-06-20 02:26] VITALS: BP 128/65
[2024-06-20 05:49] LABS: Magnesium, Blood 1.7 mg/dL (1.6-2.4)
[2024-06-20 05:50] LABS: Bun/Creatinine Ratio 21.4 (12.0-20.0); Calcium, Blood 8.5 mg/dL (8.5-10.1); Creatinine, Blood 0.7 mg/dL (0.40-1.00); Potassium, Blood 3.1 mmol/L (3.5-5.5)
--- NOTE | 2024-06-20 07:09 | NUR ---
SHIFT SUMMARY PT IS A&OX4, BUT FORGETFUL. SHE IS APPRECIATIVE AND THANKFUL FOR HER CARES. VSS ON RA. C/O PAIN IN HER RECTUM. LAST CHARTED BM WAS ON 06/15/24, PT UNSURE WHEN HER LAST BM WAS. PT STRAINING TO HAVE A BM. STOOL VERY IMPACTED. MD AWARE, ORDERED BOWEL CARE AND AN ENEMA GIVEN. PT HAD EXTRA LARGE FORMED BM. NO URINE OUTPUT THIS SHIFT, BLADDER SCAN WAS 444. HAD PT GET TO BR AND TRY TO VOID. SHE DID HAVE SOME OUTPUT, BUT MISSED THE HAT, AND NO PVR DONE. X1 ASSIST WITH FWW TO BR. BED IN LOWEST POSITION, CALL LIGHT WITHIN REACH. BED ALARM SET FOR PT'S SAFETY.
[2024-06-20 07:40] VITALS: BP 131/79
[2024-06-20] MEDS ORDERED: Docusate Sodium 100 MG Cap PO SCH (09:00)
[2024-06-20] MEDS ORDERED: Sennosides 8.6 MG Tab PO SCH (09:00)
[2024-06-20] MEDS ORDERED: Furosemide 20 MG Tab PO SCH (09:00)
[2024-06-20] MEDS ORDERED: Spironolactone 25 MG Tab PO SCH (09:00)
--- NOTE | 2024-06-20 16:15 | NUR ---
SHIFT SUMMARY; PATIENT RESTED COMFORTABLY IN BED THROUGHOUT DAY. WORKING WITH PT X 1 AND AMBULATES IN [place] USING FWW WITHOUT ANY DISTRESS NOTED. PAITENT UP INDPENDANTLY TO BATHROOM DURING DAY. CALLS APPROPRIATELY. VITAL SIGNS ARE STABLE AND WNL. PATIENT DENIES ANY PAIN OR DISCOMFORT. KCL CONTINUES TO BE LOW AND REPLACMENT KCL IS ORDERED PO. PLAN IS FOR PATIENT TO DC IN THE AM IF NO ACUTE CHANGES OVER NIGHT. [facility] ONTINUE TO MONITOR THIS PATIENT CLOSELY UNTIL REPORT AND HAND OFF TO NOC SHIFT RN.
[2024-06-20 19:12] VITALS: BP 121/77
[2024-06-21 03:06] VITALS: BP 111/61
[2024-06-21 05:03] LABS: BASOPHILS ABSOLUTE AUTO 0.06 K/mm3 (0.00-0.23); BASOPHILS PERCENT AUTO 1 % (0-2); EOSINOPHILS ABSOLUTE AUTO 0.09 K/mm3 (0.00-0.68); EOSINOPHILS PERCENT AUTO 1 % (0-6); Hematocrit 29.5 % (33.0-51.0); Hemoglobin 10.4 g/dL (11.5-16.0); IMMATURE GRAN ABSOLUTE AUTO 0.05 K/mm3 (0.00-0.10); IMMATURE GRAN PERCENT AUTO 1 % (0-1); LYMPHOCYTES ABSOLUTE AUTO 1.65 K/mm3 (0.84-5.20); LYMPHOCYTES PERCENT AUTO 18 % (21-46); MONOCYTES ABSOLUTE AUTO 0.97 K/mm3 (0.16-1.47); MONOCYTES PERCENT AUTO 11 % (4-13); Mean Corpuscular HGB 32.7 pg (26.0-34.0); Mean Corpuscular HGB Conc 35.3 g/dL (31.5-36.5); Mean Corpuscular Volume 93 fL (80-100); Mean Platelet Volume 10.9 fL (9.1-12.4); NEUTROPHILS ABSOLUTE AUTO 6.24 K/mm3 (1.96-9.15); NEUTROPHILS PERCENT AUTO 69 % (41-73); Platelet Count 188 K/mm3 (150-400); RDW Coefficient Variation 15.9 % (11.7-14.2); RDW Standard Deviation 53.7 fL (35.1-46.3); Red Blood Cell Count 3.18 M/mm3 (3.80-5.20); White Blood Cell Count 9.06 K/mm3 (4.00-11.30)
--- NOTE | 2024-06-21 05:18 | NUR ---
SHIFT SUMMARY PT IS A&OX4, BUT FORGETFUL. SHE IS APPRECIATIVE AND THANKFUL FOR HER CARES. VSS ON RA. DENIES PAIN. TOLERATING A HEART HEALTHY DIET. LOTS OF ENCOURAGING FOR PT TO DO MORE FOR HERSELF. SBA ASSIST TO BR WITH FWW. DECREASED URINE OUTPUT, BLADDER SCAN WAS 188 ML, LATER VOIDED 200 ML. NO BM THIS SHIFT. BED IN LOWEST POSITION, CALL LIGHT WITHIN REACH.
[2024-06-21 05:24] LABS: Bun/Creatinine Ratio 21.7 (12.0-20.0); Calcium, Blood 8.5 mg/dL (8.5-10.1); Creatinine, Blood 0.55 mg/dL (0.40-1.00); Potassium, Blood 3.5 mmol/L (3.5-5.5)
[2024-06-21 07:38] VITALS: BP 117/86
[2024-06-21] MEDS ORDERED: SPIR25 PO (12:01)
[2024-06-21] MEDS ORDERED: B-1100 M1 PO (12:02)
--- NOTE | 2024-06-21 14:32 | NUR ---
PT AWAKE DURING SHIFT REPORT. DENIED NEEDS. WANTING TO GO HOME TODAY. DR ANDRADE IN TO SEE PT AND DISCUSS PLAN OF CARE. D/C ORDERS PLACED. MEDS FAXED PER PT REQUEST. IMPROVEMENT COORDINATOR IN TO TALK WITH PT. TX ARRANGED PER PT REQUEST. TX LATER TO RM TO PICK PT UP. ALL BELONGINGS WENT WITH PT. PT LATER CALLED TO REPORT THAT SHE WAS HOME. FWW AT HER HOUSE WITH MEDICATIONS DELIVERED.
== END 2024-06-21 13:27 | disposition home health service (06) | DRG 291 ==
LOC: ER 00:38 → ERHOLD 00:39 → PCU 14:05 → MEDS 06-15 16:20 → ENPENDDIS 06-21 11:42 → MEDS 06-21 13:27
PROVIDERS: Emergency Medicine; Internal Medicine; ADMIT Internal Medicine
PROC: HZ2ZZZZ Detoxification Services for Substance Abuse Treatment (ICD-10-PCS; principal; 2024-06-14)
DX: I11.0 Hypertensive heart disease with heart failure (principal); I50.33 Acute on chronic diastolic (congestive) heart failure; I48.20 Chronic atrial fibrillation, unspecified; E87.1 Hypo-osmolality and hyponatremia; E87.6 Hypokalemia; E83.42 Hypomagnesemia; M19.90 Unspecified osteoarthritis, unspecified site; K59.00 Constipation, unspecified; Z91.148 Patient's other noncompliance with medication regimen for other reason; E78.5 Hyperlipidemia, unspecified; Z85.3 Personal history of malignant neoplasm of breast; Z98.890 Other specified postprocedural states; Z90.12 Acquired absence of left breast and nipple; Z96.643 Presence of artificial hip joint, bilateral; Z87.891 Personal history of nicotine dependence; Z88.8 Allergy status to other drugs, medicaments and biological substances; Z79.01 Long term (current) use of anticoagulants; Z79.899 Other long term (current) drug therapy; F10.90 Alcohol use, unspecified, uncomplicated; Z71.41 Alcohol abuse counseling and surveillance of alcoholic; Z79.891 Long term (current) use of opiate analgesic; Z90.89 Acquired absence of other organs
CPT/HCPCS: 36415; 80048; 80053; 80162; 83735; 83880; 84132; 85025; 93005; 93010; 93306; 94760; 96372; 96374; 96376; 97110; 97110-CQ; 97116; 97161; 97165; 97530; 97530-CQ; 97535; 99285-25; A9270; G0378; J1650; J1940; J3475; J3480; J7050

== ENCOUNTER → 2024-07-03 | Outpatient (CLI) | payer MEDICARE, OTHER ==
[~2024-07-03] MED LIST changes: +B-1100 M1 PO; +SPIR25 PO
[2024-07-03 21:18] LABS: Bun/Creatinine Ratio 9.2 (12.0-20.0); Calcium, Blood 8.6 mg/dL (8.5-10.1); Creatinine, Blood 0.55 mg/dL (0.40-1.00); Potassium, Blood 3.8 mmol/L (3.5-5.5)
== END ==
LOC: LAB 15:33 → LAB SHORT 15:33
PROVIDERS: Hospitalist
DX: I50.22 Chronic systolic (congestive) heart failure (principal)
CPT/HCPCS: 80048

== ENCOUNTER 2024-07-04 08:39 | Emergency (ER) | payer MEDICARE, OTHER ==
[~2024-07-04] VITALS: Ht 162.6 cm; Wt 92.5 kg
[2024-07-04] MEDS ORDERED: Metoprolol Tartrate 1 MG/ML 5 ML VIAL IV ONE (09:00)
[2024-07-04 09:15] LABS: BASOPHILS ABSOLUTE AUTO 0.08 K/mm3 (0.00-0.23); BASOPHILS PERCENT AUTO 1 % (0-2); EOSINOPHILS ABSOLUTE AUTO 0.01 K/mm3 (0.00-0.68); EOSINOPHILS PERCENT AUTO 0 % (0-6); Hematocrit 35.7 % (33.0-51.0); Hemoglobin 12.4 g/dL (11.5-16.0); IMMATURE GRAN ABSOLUTE AUTO 0.04 K/mm3 (0.00-0.10); IMMATURE GRAN PERCENT AUTO 1 % (0-1); LYMPHOCYTES ABSOLUTE AUTO 1.13 K/mm3 (0.84-5.20); LYMPHOCYTES PERCENT AUTO 13 % (21-46); MONOCYTES ABSOLUTE AUTO 0.67 K/mm3 (0.16-1.47); MONOCYTES PERCENT AUTO 8 % (4-13); Mean Corpuscular HGB 32.9 pg (26.0-34.0); Mean Corpuscular HGB Conc 34.7 g/dL (31.5-36.5); Mean Corpuscular Volume 95 fL (80-100); Mean Platelet Volume 9.8 fL (9.1-12.4); NEUTROPHILS ABSOLUTE AUTO 6.63 K/mm3 (1.96-9.15); NEUTROPHILS PERCENT AUTO 78 % (41-73); Platelet Count 244 K/mm3 (150-400); RDW Coefficient Variation 15.6 % (11.7-14.2); RDW Standard Deviation 53.5 fL (35.1-46.3); Red Blood Cell Count 3.77 M/mm3 (3.80-5.20); White Blood Cell Count 8.56 K/mm3 (4.00-11.30)
[2024-07-04 09:47] LABS: Albumin, Blood 3.3 g/dL (3.4-5.0); Albumin/Globulin Ratio 0.6 (0.8-1.8); Bilirubin, Total 2.3 mg/dL (0.1-1.0); Bun/Creatinine Ratio 13.3 (12.0-20.0); Calcium, Blood 8.9 mg/dL (8.5-10.1); Creatinine, Blood 0.53 mg/dL (0.40-1.00); Globulin, Blood 5.1 g/dL (2.2-4.0); Potassium, Blood 3.8 mmol/L (3.5-5.5); Total Protein, Blood 8.4 g/dL (6.4-8.2)
[2024-07-04] MEDS ORDERED: Diltiazem HCl 5 MG / ML 5ML Vial IV ONE (10:30)
[2024-07-04 15:00] VITALS: BP 137/97
== END 2024-07-04 15:20 | disposition home or self-care (01) ==
LOC: ER 08:39
PROVIDERS: Emergency Medicine
DX: I48.91 Unspecified atrial fibrillation (principal); I50.30 Unspecified diastolic (congestive) heart failure; R60.0 Localized edema; Z88.8 Allergy status to other drugs, medicaments and biological substances; Z79.899 Other long term (current) drug therapy; Z87.891 Personal history of nicotine dependence
CPT/HCPCS: 71045; 80053; 83880; 84484; 85025; 93005; 93010; 96374; 96375; 99284-25

== ENCOUNTER 2024-09-04 08:10 | Emergency (ER) | payer MEDICARE, OTHER ==
[~2024-09-04] VITALS: Ht 167.6 cm; Wt 88.5 kg
[2024-09-04] MEDS ORDERED: Diltiazem HCl 5 MG / ML 5ML Vial IV ONE (16:00)
[2024-09-04 16:32] LABS: Source, Urine Straight Cath
[2024-09-04 16:38] LABS: Appearance, Urine Hazy (Clear); Blood, Urine Neg (Neg); Color, Urine Amber (P-Yellow); Glucose Qualitative, Urine Neg (Neg); Ketones, Urine 4+ (Neg); Leukocyte Esterase, Urine 2+ (Neg); Nitrite, Urine Pos (Neg); Protein, Urine 2+ (Neg); Specific Gravity, Urine 1.025 (1.003-1.022); Urobilinogen, Urine 3+ (Normal)
[2024-09-04 16:48] LABS: Bilirubin, Urine 2+ (Neg)
[2024-09-04 16:49] LABS: Amorphous Light (0-Heavy); Bacteria Many /hpf; Mucus Light (0-Heavy); Red Blood Cells, Urine 0-2 /hpf (0-2); Squamous Epithelial Cells Few /hpf (Few)
[2024-09-04 16:50] LABS: Hyaline Casts 0-2 /lpf (0-2)
[2024-09-04 17:04] LABS: Albumin, Blood 2.9 g/dL (3.4-5.0); Albumin/Globulin Ratio 0.6 (0.8-1.8); Bilirubin, Total 3.7 mg/dL (0.1-1.0); Bun/Creatinine Ratio 20.4 (12.0-20.0); Calcium, Blood 8.6 mg/dL (8.5-10.1); Creatinine, Blood 0.54 mg/dL (0.40-1.00); Potassium, Blood 4.7 mmol/L (3.5-5.5); Total Protein, Blood 7.9 g/dL (6.4-8.2)
[2024-09-04 17:18] LABS: BASOPHILS ABSOLUTE AUTO 0.06 K/mm3 (0.00-0.23); BASOPHILS PERCENT AUTO 1 % (0-2); EOSINOPHILS ABSOLUTE AUTO 0.01 K/mm3 (0.00-0.68); EOSINOPHILS PERCENT AUTO 0 % (0-6); Hematocrit 39.2 % (33.0-51.0); Hemoglobin 13.1 g/dL (11.5-16.0); IMMATURE GRAN ABSOLUTE AUTO 0.04 K/mm3 (0.00-0.10); IMMATURE GRAN PERCENT AUTO 1 % (0-1); LYMPHOCYTES ABSOLUTE AUTO 1.26 K/mm3 (0.84-5.20); LYMPHOCYTES PERCENT AUTO 14 % (21-46); MONOCYTES ABSOLUTE AUTO 0.78 K/mm3 (0.16-1.47); MONOCYTES PERCENT AUTO 9 % (4-13); Mean Corpuscular HGB 32.3 pg (26.0-34.0); Mean Corpuscular HGB Conc 33.4 g/dL (31.5-36.5); Mean Corpuscular Volume 97 fL (80-100); Mean Platelet Volume 10.3 fL (9.1-12.4); NEUTROPHILS ABSOLUTE AUTO 6.61 K/mm3 (1.96-9.15); NEUTROPHILS PERCENT AUTO 75 % (41-73); Platelet Count 136 K/mm3 (150-400); RDW Coefficient Variation 14.6 % (11.7-14.2); RDW Standard Deviation 52.4 fL (35.1-46.3); Red Blood Cell Count 4.06 M/mm3 (3.80-5.20); White Blood Cell Count 8.76 K/mm3 (4.00-11.30)
[2024-09-04] MEDS ORDERED: Metoprolol Succinate 50 MG TABCR PO ONE (20:00)
[2024-09-04 20:30] VITALS: BP 159/93
[2024-09-04] MEDS ORDERED: CEPH500 PO (21:19)
[2024-09-04] MEDS ORDERED: Cephalexin Monohydrate 500 MG Cap PO ONE (21:20)
== END 2024-09-04 21:55 | disposition home or self-care (01) ==
LOC: ER 08:10
PROVIDERS: Emergency Medicine
DX: I48.91 Unspecified atrial fibrillation (principal); N39.0 Urinary tract infection, site not specified; I10 Essential (primary) hypertension; Z79.899 Other long term (current) drug therapy
CPT/HCPCS: 51701; 71046; 80053; 81001; 83880; 84484; 85025; 87086; 93005; 93010; 96374; 99285-25; A9270

== ENCOUNTER 2024-09-07 12:10 | Observation (INO) | payer MEDICARE, OTHER ==
[~2024-09-07] VITALS: Ht 162.6 cm; Wt 81.4 kg
[~2024-09-07 12:10] MED LIST changes: +CEPH500 PO
[2024-09-07 13:24] LABS: BASOPHILS ABSOLUTE AUTO 0.05 K/mm3 (0.00-0.23); BASOPHILS PERCENT AUTO 1 % (0-2); EOSINOPHILS ABSOLUTE AUTO 0.01 K/mm3 (0.00-0.68); EOSINOPHILS PERCENT AUTO 0 % (0-6); Hematocrit 36.9 % (33.0-51.0); Hemoglobin 12.7 g/dL (11.5-16.0); IMMATURE GRAN ABSOLUTE AUTO 0.02 K/mm3 (0.00-0.10); IMMATURE GRAN PERCENT AUTO 0 % (0-1); LYMPHOCYTES ABSOLUTE AUTO 1.29 K/mm3 (0.84-5.20); LYMPHOCYTES PERCENT AUTO 18 % (21-46); MONOCYTES ABSOLUTE AUTO 0.56 K/mm3 (0.16-1.47); MONOCYTES PERCENT AUTO 8 % (4-13); Mean Corpuscular HGB 32.2 pg (26.0-34.0); Mean Corpuscular HGB Conc 34.4 g/dL (31.5-36.5); Mean Corpuscular Volume 93 fL (80-100); Mean Platelet Volume 10.8 fL (9.1-12.4); NEUTROPHILS ABSOLUTE AUTO 5.17 K/mm3 (1.96-9.15); NEUTROPHILS PERCENT AUTO 73 % (41-73); Platelet Count 151 K/mm3 (150-400); RDW Coefficient Variation 14.6 % (11.7-14.2); RDW Standard Deviation 50.9 fL (35.1-46.3); Red Blood Cell Count 3.95 M/mm3 (3.80-5.20)
[2024-09-07 13:57] LABS: Source, Urine Fem Cath
[2024-09-07 14:03] LABS: Appearance, Urine Clear (Clear); Bilirubin, Urine Neg (Neg); Blood, Urine Neg (Neg); Color, Urine Yellow (P-Yellow); Glucose Qualitative, Urine Neg (Neg); Ketones, Urine Neg (Neg); Leukocyte Esterase, Urine Neg (Neg); Nitrite, Urine Neg (Neg); Protein, Urine Neg (Neg); Specific Gravity, Urine 1.005 (1.003-1.022); Urobilinogen, Urine NORM (Normal)
[2024-09-07 14:04] LABS: Albumin, Blood 3.1 g/dL (3.4-5.0); Albumin/Globulin Ratio 0.7 (0.8-1.8); Bilirubin, Total 2.1 mg/dL (0.1-1.0); Bun/Creatinine Ratio 9.6 (12.0-20.0); Calcium, Blood 8.5 mg/dL (8.5-10.1); Creatinine, Blood 0.52 mg/dL (0.40-1.00); Globulin, Blood 4.7 g/dL (2.2-4.0); Potassium, Blood 3.4 mmol/L (3.5-5.5); Total Protein, Blood 7.8 g/dL (6.4-8.2)
[2024-09-07] MEDS ORDERED: Metoprolol Tartrate 1 MG/ML 5 ML VIAL IV ONE (14:35)
[2024-09-07] MEDS ORDERED: FLU VACC TS2024-25(6MOS UP)/PF 45 MCG/0.5 ML SYRINGE IM SCH (15:45)
[2024-09-07] MEDS ORDERED: Apixaban 5 MG Tab PO SCH (16:30)
[2024-09-07 18:15] VITALS: BP 139/88
--- NOTE | 2024-09-07 19:14 | NUR ---
ADMIT NOTE PT A&OX4. PT ADMITTED DUE TO AFIB WITH RVR. PT REPORTED PREVIOUS CHEST PAIN BEFORE ADMIT, PT ON TELE. RUNNING AFIB AT 96 BPM. PT TRANSFERED WITH SLIDER SHEET, DUE TO PT REPORTED A INCREASE IN WEAKNESS. PT CAME UP WITH PERWICK IN PLACE, WE DISCONTINUED PERWICK DUE TO PT REPORTING ABLE TO USE WALKER AT BASELINE. MAY NEED IT PLACED DUE TO LASIX, EDEMA, WEAKNESS. PT REPORTS LACK OF RESOURCES, CARE MANAGEMENT CONSULTED. PT HAS BLE LOWER EXTREMITY EDEMA. SARAH PAD PLACED UNDER LEGS. PT DOESNT EAT VERY ADEQUATE, OFFERED ENSURE, ACCEPTED. PT HAS GENERALIZED PAIN WITH MOVEMENT. BED IN LOWEST POSITION CALL LIGHT IN REACH. PT HAS PERSONAL BELONGINGS, GLASSES. PT IS INC AT TIMES HAS ATTENDS ON. TOLD NIGHT NURSE REPORT, PASSED ON THAT THE MED REC NEEDS COMPLETED.
[2024-09-07 19:28] VITALS: BP 113/75
[2024-09-07] MEDS ORDERED: DILT120 PO (19:52)
[2024-09-07] MEDS ORDERED: FURO20 PO (21:45)
[2024-09-08 04:27] VITALS: BP 145/88
--- NOTE | 2024-09-08 04:55 | NUR ---
SHIFT SUMMARY; PATIENT SLEPT IN LONG INTERVALS. TELE AFIB, RATES OF 85 AND 96. BLE ELEVATED WITH KNEE GATCH OR WITH PILLOWS. DID NOT REQUIRE ANY PRN MEDS
[2024-09-08 05:10] LABS: BASOPHILS ABSOLUTE AUTO 0.03 K/mm3 (0.00-0.23); BASOPHILS PERCENT AUTO 1 % (0-2); EOSINOPHILS ABSOLUTE AUTO 0.06 K/mm3 (0.00-0.68); EOSINOPHILS PERCENT AUTO 1 % (0-6); Hematocrit 33.8 % (33.0-51.0); Hemoglobin 11.7 g/dL (11.5-16.0); IMMATURE GRAN ABSOLUTE AUTO 0.01 K/mm3 (0.00-0.10); IMMATURE GRAN PERCENT AUTO 0 % (0-1); LYMPHOCYTES ABSOLUTE AUTO 1.22 K/mm3 (0.84-5.20); LYMPHOCYTES PERCENT AUTO 23 % (21-46); MONOCYTES ABSOLUTE AUTO 0.44 K/mm3 (0.16-1.47); MONOCYTES PERCENT AUTO 8 % (4-13); Mean Corpuscular HGB 32.4 pg (26.0-34.0); Mean Corpuscular HGB Conc 34.6 g/dL (31.5-36.5); Mean Corpuscular Volume 94 fL (80-100); Mean Platelet Volume 10.4 fL (9.1-12.4); NEUTROPHILS ABSOLUTE AUTO 3.62 K/mm3 (1.96-9.15); NEUTROPHILS PERCENT AUTO 67 % (41-73); Platelet Count 139 K/mm3 (150-400); RDW Coefficient Variation 14.9 % (11.7-14.2); RDW Standard Deviation 51.4 fL (35.1-46.3); Red Blood Cell Count 3.61 M/mm3 (3.80-5.20); White Blood Cell Count 5.38 K/mm3 (4.00-11.30)
[2024-09-08 05:52] LABS: Albumin, Blood 2.6 g/dL (3.4-5.0); Albumin/Globulin Ratio 0.7 (0.8-1.8); Bilirubin, Total 2.1 mg/dL (0.1-1.0); Bun/Creatinine Ratio 17.3 (12.0-20.0); Calcium, Blood 8.3 mg/dL (8.5-10.1); Creatinine, Blood 0.46 mg/dL (0.40-1.00); Globulin, Blood 3.9 g/dL (2.2-4.0); Magnesium, Blood 1.6 mg/dL (1.6-2.4); Potassium, Blood 2.9 mmol/L (3.5-5.5); Total Protein, Blood 6.5 g/dL (6.4-8.2)
[2024-09-08 07:11] VITALS: BP 152/97
[2024-09-08] MEDS ORDERED: Furosemide 20 MG Tab PO SCH (09:00)
[2024-09-08] MEDS ORDERED: Metoprolol Succinate 50 MG TABCR PO SCH (09:00)
[2024-09-08] MEDS ORDERED: Potassium Chloride 10 Meq Tablet SA PO SCH (09:00)
[2024-09-08] MEDS ORDERED: Thiamine HCl 100 MG Tab PO SCH (09:00)
[2024-09-08] MEDS ORDERED: Spironolactone 25 MG Tab PO SCH (09:00)
[2024-09-08] MEDS ORDERED: Potassium Chloride 40 MEQ in NS 250 ML IV ONE (09:15)
[2024-09-08] MEDS ORDERED: NS 250 ML IV PRN (10:15)
[2024-09-08 15:12] VITALS: BP 118/98
--- NOTE | 2024-09-08 16:39 | NUR ---
SHIFT SUMMARY PT A&OX4. PT ADMITTED DUE TO AFIB WITH RVR. PT REPORTS NO CHEST PAIN. PT ON TELE. NEW IV WAS PLACED DUE TO IV ON L FOREARM INFILTRATED. NEW IV FLUSHES ADEQUATE. PT RECEIVED POTASSIUM REPLACEMENT INTRAVENIOUSLY. PT HAS URINARY FREQ. USES BSC WITH SBA. PT EATS POOR. PT BED IN LOWEST POSITION. CALLS APPROPRIATE. CALL LIGHT IN REACH, VSS.
[2024-09-08 19:48] VITALS: BP 118/71
[2024-09-09 01:42] VITALS: BP 118/82
--- NOTE | 2024-09-09 05:18 | NUR ---
SHIFT SUMMARY PATIENT HAD NO ACUTE CHANGES. AXOX 4 AND ONE ASSIST W/FWW TO BSC. PIV INTACT. TELE MONITOR AFIB 98. DENIES CHEST PAIN, SOB, AND N/V. VSS/AFEBRILE. CIWA SCORE ZERO. COOPERATIVE WITH CARE. CALL LIGHT IN REACH. BED IN LOWEST POSITION. WILL CONTINUE TO MONITOR UNTIL DAY SHIFT NURSE ASSUMES CARE.
[2024-09-09 06:06] LABS: Albumin, Blood 2.8 g/dL (3.4-5.0); Albumin/Globulin Ratio 0.7 (0.8-1.8); Bilirubin, Direct 0.8 mg/dL (0.0-0.3); Bilirubin, Indirect 0.8 mg/dL (0.1-0.7); Bilirubin, Total 1.6 mg/dL (0.1-1.0); Bun/Creatinine Ratio 11.3 (12.0-20.0); Calcium, Blood 8.6 mg/dL (8.5-10.1); Creatinine, Blood 0.62 mg/dL (0.40-1.00); Globulin, Blood 4.3 g/dL (2.2-4.0); Phosphorus, Blood 3.4 mg/dL (2.5-4.9); Potassium, Blood 3.2 mmol/L (3.5-5.5); Total Protein, Blood 7.1 g/dL (6.4-8.2)
[2024-09-09 08:00] VITALS: BP 147/85
[2024-09-09] MEDS ORDERED: Multivitamins 1 Tab PO SCH (09:00)
[2024-09-09] MEDS ORDERED: Potassium Chloride 20 MEQ TabCR PO ONE (12:00)
[2024-09-09] MEDS ORDERED: ELIQUIS5 M2 PO (12:23)
[2024-09-09] MEDS ORDERED: MULVITA PO (12:23)
--- NOTE | 2024-09-09 14:21 | NUR ---
DISCHARGE REIVEWED WITH PT. PPT VERBALIZED UNDERSTANDING MEDS AND INST. AIDE TO PULL IV AND ASST DRESSING. PENDING RIDE FROM FAMILY FRIEND
--- NOTE | 2024-09-09 15:47 | NUR ---
aide removed iv and tele. pt wheeled to door at 3604
== END 2024-09-09 15:47 | disposition home health service (06) ==
LOC: ER 12:10 → MEDS 12:11 → ER 15:41 → MEDS 15:41
PROVIDERS: Internal Medicine; Student in an Organized Health Care Education/Training Program; ADMIT Family Medicine
DX: I48.20 Chronic atrial fibrillation, unspecified (principal); E87.6 Hypokalemia; F10.90 Alcohol use, unspecified, uncomplicated; I11.0 Hypertensive heart disease with heart failure; I50.32 Chronic diastolic (congestive) heart failure; J44.9 Chronic obstructive pulmonary disease, unspecified; N39.0 Urinary tract infection, site not specified; Z79.01 Long term (current) use of anticoagulants; Z79.899 Other long term (current) drug therapy; Z87.891 Personal history of nicotine dependence
CPT/HCPCS: 36415; 51701; 71045; 71046; 80053; 81001; 81003; 82248; 83605; 83735; 83880; 84100; 84484; 85025; 87086; 93005; 93010; 96374; 97161; 97530; 99285-25; A9270; G0378; J3480; J7050

== ENCOUNTER 2024-10-27 01:01 | Inpatient (IN) | payer MEDICARE, OTHER ==
[2024-10-27] VITALS (8 sets, daily range): BP systolic 94–128; BP diastolic 63–86
[~2024-10-27] VITALS: Ht 162.6 cm; Wt 90.4 kg
[~2024-10-27 01:01] MED LIST changes: +DILT120 PO; +ELIQUIS5 M2 PO; +MULVITA PO
[2024-10-27 01:36] LABS: BASOPHILS ABSOLUTE AUTO 0.05 K/mm3 (0.00-0.23); BASOPHILS PERCENT AUTO 1 % (0-2); EOSINOPHILS ABSOLUTE AUTO 0.04 K/mm3 (0.00-0.68); EOSINOPHILS PERCENT AUTO 0 % (0-6); Hematocrit 31.4 % (33.0-51.0); Hemoglobin 10.9 g/dL (11.5-16.0); IMMATURE GRAN ABSOLUTE AUTO 0.05 K/mm3 (0.00-0.10); IMMATURE GRAN PERCENT AUTO 1 % (0-1); LYMPHOCYTES ABSOLUTE AUTO 1.38 K/mm3 (0.84-5.20); LYMPHOCYTES PERCENT AUTO 14 % (21-46); MONOCYTES PERCENT AUTO 10 % (4-13); Mean Corpuscular HGB 33.3 pg (26.0-34.0); Mean Corpuscular HGB Conc 34.7 g/dL (31.5-36.5); Mean Corpuscular Volume 96 fL (80-100); Mean Platelet Volume 10.1 fL (9.1-12.4); NEUTROPHILS ABSOLUTE AUTO 7.11 K/mm3 (1.96-9.15); NEUTROPHILS PERCENT AUTO 74 % (41-73); Platelet Count 151 K/mm3 (150-400); RDW Coefficient Variation 15.4 % (11.7-14.2); RDW Standard Deviation 54.5 fL (35.1-46.3); Red Blood Cell Count 3.27 M/mm3 (3.80-5.20); White Blood Cell Count 9.63 K/mm3 (4.00-11.30)
[2024-10-27 02:00] LABS: Albumin, Blood 2.8 g/dL (3.4-5.0); Albumin/Globulin Ratio 0.6 (0.8-1.8); Bilirubin, Total 4.3 mg/dL (0.1-1.0); Bun/Creatinine Ratio 10.4 (12.0-20.0); Calcium, Blood 8.2 mg/dL (8.5-10.1); Creatinine, Blood 0.48 mg/dL (0.40-1.00); Globulin, Blood 4.5 g/dL (2.2-4.0); Potassium, Blood 4.5 mmol/L (3.5-5.5); Total Protein, Blood 7.3 g/dL (6.4-8.2)
[2024-10-27] MEDS ORDERED: CefTRIAXone Sodium 1,000 MG in NS 50 ML IV ONE (03:20)
[2024-10-27 03:47] LABS: Phosphorus, Blood 2.9 mg/dL (2.5-4.9)
[2024-10-27 04:30] LABS: Source, Urine Clean Catch
[2024-10-27] MEDS ORDERED: FLU VACC TS2024-25(6MOS UP)/PF 45 MCG/0.5 ML SYRINGE IM ONE (04:30)
[2024-10-27 04:34] LABS: Blood, Urine Neg (Neg); Glucose Qualitative, Urine Neg (Neg); Ketones, Urine 1+ (Neg); Leukocyte Esterase, Urine 1+ (Neg); Nitrite, Urine Pos (Neg); Protein, Urine 1+ (Neg); Urobilinogen, Urine 3+ (Normal)
[2024-10-27] MEDS ORDERED: Glucose Oral Gel 15 GM TUBE PO ONE (05:00)
[2024-10-27] MEDS ORDERED: Glucose Oral Gel 15 GM TUBE PO PRN (05:00)
[2024-10-27] MEDS ORDERED: Metoprolol Succinate 50 MG TABCR PO SCH (05:00)
[2024-10-27 05:18] LABS: Appearance, Urine Clear (Clear); Bilirubin, Urine 2+ (Neg); Color, Urine Orange (P-Yellow)
[2024-10-27 05:19] LABS: Bacteria Mod /hpf; Red Blood Cells, Urine 0-2 /hpf (0-2); Squamous Epithelial Cells Many /hpf (Few); White Blood Cells, Urine 0-2 /hpf (0-5)
[2024-10-27] MEDS ORDERED: CeFAZolin Sodium 2,000 MG in NS 100 ML IV SCH (05:29)
[2024-10-27] MEDS ORDERED: NS 1,000 ML IR ONE (05:35)
[2024-10-27] MEDS ORDERED: NS 1,000 ML IV ONE ×2 (05:35→05:50)
[2024-10-27 05:58] LABS: BASOPHILS ABSOLUTE AUTO 0.05 K/mm3 (0.00-0.23); BASOPHILS PERCENT AUTO 1 % (0-2); EOSINOPHILS ABSOLUTE AUTO 0.02 K/mm3 (0.00-0.68); EOSINOPHILS PERCENT AUTO 0 % (0-6); Hematocrit 32.8 % (33.0-51.0); Hemoglobin 11.3 g/dL (11.5-16.0); IMMATURE GRAN ABSOLUTE AUTO 0.08 K/mm3 (0.00-0.10); IMMATURE GRAN PERCENT AUTO 1 % (0-1); LYMPHOCYTES ABSOLUTE AUTO 1.08 K/mm3 (0.84-5.20); LYMPHOCYTES PERCENT AUTO 10 % (21-46); MONOCYTES ABSOLUTE AUTO 0.94 K/mm3 (0.16-1.47); MONOCYTES PERCENT AUTO 9 % (4-13); Mean Corpuscular HGB 33.4 pg (26.0-34.0); Mean Corpuscular HGB Conc 34.5 g/dL (31.5-36.5); Mean Corpuscular Volume 97 fL (80-100); Mean Platelet Volume 10.5 fL (9.1-12.4); NEUTROPHILS ABSOLUTE AUTO 8.42 K/mm3 (1.96-9.15); NEUTROPHILS PERCENT AUTO 79 % (41-73); Platelet Count 158 K/mm3 (150-400); RDW Coefficient Variation 15.6 % (11.7-14.2); RDW Standard Deviation 55.5 fL (35.1-46.3); Red Blood Cell Count 3.38 M/mm3 (3.80-5.20); White Blood Cell Count 10.59 K/mm3 (4.00-11.30)
--- NOTE | 2024-10-27 06:28 | NUR ---
PT ADMITTED FROM ED WITH SEPSIS/ WOUND. PT WITH AREA ON BILAT BUTTOCKS THAT IS PURPLE IN COLOR, IS NOT OPEN, PICTURE IN CHART. A&O X2, VERY FORGETFULL. PT VS WNL WITH EXCEPTION OF HR, TELE IS AFIV WITH RVR RATE IN 130'S. PT HAS 4+ PITTING EDEMA WHICH IS WEEPING CLEAR FLUID. PT HAS BEEN INCONTINENT AT HOME PURWIK IN USE HERE. PT UNABLE TO MOVE LE'S, CAN NOT BEND KNEES, STATES SHE WAS ONCE ABLE TO AMBULATE WITH WALKER UNTIL RECENTLY. PT CBG WAS 64 UPON REACHING UNIT, GAVE JUICE AND CHEESE, DOES NOT HAVE AN APPETITE, GAVE GLUCOSE 15GM PO. IVF RUNNING AT 125/HR, AND ON IVABX.
[2024-10-27 06:36] LABS: Albumin/Globulin Ratio 0.6 (0.8-1.8); Bilirubin, Total 4.8 mg/dL (0.1-1.0); Bun/Creatinine Ratio 10.8 (12.0-20.0); Calcium, Blood 8.1 mg/dL (8.5-10.1); Creatinine, Blood 0.46 mg/dL (0.40-1.00); Globulin, Blood 4.7 g/dL (2.2-4.0); Potassium, Blood 4.3 mmol/L (3.5-5.5); Total Protein, Blood 7.7 g/dL (6.4-8.2)
--- NOTE | 2024-10-27 08:04 | NUR ---
STUDENT CAME TO SEE THE PT- PT HAS WOUND ON HER BOTTOM, ATTEMPTING TO VISUALIZE THE WOUND, THE PT WAS LAID FLAT AND ROLLED TO THE LEFT WITH MODERATE ASSISTANCE. EVLUATION OF SKIN COMPLETED IN 1-2 MINUTES, NOTED DARK PURPLE SPOTS ON THE PT BOTTOM THAT ARE BLANCHABLE. PT WAS ASSISTED TO ROLL TO HER BACK, HANDS AND FACE WERE BLUE. CALLED FOR VS MACHINE 8 MIN LATER O2 SATS WERE 96% ON ROOM AIR. PT WAS ASSISTED TO ROLL TO THE SIDE SO LUNG SOUNDS COULD BE AUSCULTATED, NOTED FINE WHEEZE WITH DIM CRACKLES IN THE LEFT LUNG BASE. PT ASSISTED TO HER BACK AND FACE AND HANDS WERE AGAIN BLUE, O2 SATS SHOW A GOOD WAVE FORM AND SATS OF 76. PLACED THE PT ON 2L O2 VIA NC TO PREVENT DESATS. SHE DENIES SOB, HOWEVER RESP RATE IS ELEVATED 30 RESP/MIN AND AUDIBLE WHEEZE SHE RECOVERS. CALLED DR LANTIGUA THE LACTIC CAME BACK CRITICAL AT 4.4. DR LANTIGUA IS AWARE, NEW ORDERS RECIEVED. CONT BIOX ORDERED FOR A SHORT WHILE TO MONITOR PT SATS.
[2024-10-27] MEDS ORDERED: Apixaban 5 MG Tab PO SCH (09:00)
[2024-10-27] MEDS ORDERED: Arginine/Glutamine/Calcium Hmb 1 Packet PO SCH (09:00)
[2024-10-27] MEDS ORDERED: Spironolactone 25 MG Tab PO SCH (09:00)
[2024-10-27] MEDS ORDERED: Multivitamins 1 Tab PO SCH (09:00)
[2024-10-27] MEDS ORDERED: Thiamine HCl 100 MG Tab PO SCH (09:00)
[2024-10-27] MEDS ORDERED: Furosemide 20 MG Tab PO SCH (09:00)
[2024-10-27] MEDS ORDERED: Furosemide 10 MG/ML 4ML Vial IV SCH (13:30)
[2024-10-27] MEDS ORDERED: Aspir 8181 MG PO (13:52)
[2024-10-27] MEDS ORDERED: Furosemide 10 MG / ML 2ML Vial IV SCH (15:00)
--- NOTE | 2024-10-27 20:19 | NUR ---
SHIFT SUMMARY- PT IN BED ON BEDREST, PITTING WEEPING EDEMA IN BLE. PITTING EDEMA TO PT BODY. MD AWARE. O2 SATS DROPPED TO 76% EARLIER TODAY WHEN STAFF ATTEMPTED TO ROLL THE PT, PLACED ON 2L VIA NC AFTER TALKING TO DR LANTIGUA. CHEST XR WAS COMPLETED, ECHO COMPLETED, LIVER US COMPLETED. PT IN BED, PLEASENT AND TAKING TO STAFF. BEDSIDE REPORT COMPLETED WITH NIGHT RN. NO S&S OF DISTRESS NOTED.
[2024-10-28 00:18] VITALS: BP 86/53
[2024-10-28] MEDS ORDERED: NS 1,000 ML BAG IR ONE ×2 (00:40→02:55)
[2024-10-28 02:00] VITALS: BP 93/61
[2024-10-28] MEDS ORDERED: NS 500 ML IV ONE (03:20)
--- NOTE | 2024-10-28 05:36 | NUR ---
SHIFT SUMM: PT IS A 69 YO FULL CODE WHO WAS ADMITTED FOR SEPSIS. PT IS ON CONT PULSE OX AND ON 2L OF OXYGEN .PT HAS A PURE WICK FOR INCONT. PT HAS WEEPING LEGS AND HAD SOME LOW BP'S THAT A FLUID BOLUS WAS GIVEN FOR AND BP IMPROVED/ PT IS ON TELE WITH AFIB IN THE 80'S. PT HAS SOME UPPPER ABDOMINAL DISTENTION. PT IS PLEASANT AND CALLS NEEDED, PT HAS CALL LIGHT WITHIN REACH.
[2024-10-28 05:41] LABS: BASOPHILS ABSOLUTE AUTO 0.05 K/mm3 (0.00-0.23); BASOPHILS PERCENT AUTO 1 % (0-2); EOSINOPHILS ABSOLUTE AUTO 0.08 K/mm3 (0.00-0.68); EOSINOPHILS PERCENT AUTO 1 % (0-6); Hematocrit 32.6 % (33.0-51.0); Hemoglobin 11.2 g/dL (11.5-16.0); IMMATURE GRAN ABSOLUTE AUTO 0.07 K/mm3 (0.00-0.10); IMMATURE GRAN PERCENT AUTO 1 % (0-1); LYMPHOCYTES ABSOLUTE AUTO 1.15 K/mm3 (0.84-5.20); LYMPHOCYTES PERCENT AUTO 14 % (21-46); MONOCYTES ABSOLUTE AUTO 0.76 K/mm3 (0.16-1.47); MONOCYTES PERCENT AUTO 9 % (4-13); Mean Corpuscular HGB 33.7 pg (26.0-34.0); Mean Corpuscular HGB Conc 34.4 g/dL (31.5-36.5); Mean Corpuscular Volume 98 fL (80-100); Mean Platelet Volume 10.3 fL (9.1-12.4); NEUTROPHILS ABSOLUTE AUTO 6.04 K/mm3 (1.96-9.15); NEUTROPHILS PERCENT AUTO 74 % (41-73); Platelet Count 155 K/mm3 (150-400); RDW Coefficient Variation 15.4 % (11.7-14.2); RDW Standard Deviation 54.8 fL (35.1-46.3); Red Blood Cell Count 3.32 M/mm3 (3.80-5.20); White Blood Cell Count 8.15 K/mm3 (4.00-11.30)
[2024-10-28 05:54] LABS: International Normalized Ratio 2.15; Prothrombin Time Results 21.7 Sec (9.7-11.5)
[2024-10-28 06:27] LABS: Albumin, Blood 2.8 g/dL (3.4-5.0); Albumin/Globulin Ratio 0.6 (0.8-1.8); Bilirubin, Total 4.2 mg/dL (0.1-1.0); Bun/Creatinine Ratio 24.8 (12.0-20.0); Calcium, Blood 8.7 mg/dL (8.5-10.1); Creatinine, Blood 0.56 mg/dL (0.40-1.00); Globulin, Blood 4.5 g/dL (2.2-4.0); Potassium, Blood 4.2 mmol/L (3.5-5.5); Total Protein, Blood 7.3 g/dL (6.4-8.2)
[2024-10-28 07:37] VITALS: BP 111/67
[2024-10-28] MEDS ORDERED: Furosemide 10 MG/ML 4ML Vial IV SCH (09:00)
[2024-10-28] MEDS ORDERED: Folic Acid 1 MG TAB PO SCH (09:00)
[2024-10-28] MEDS ORDERED: Polyethylene Glycol 3350 17 gm PO PRN (10:30)
[2024-10-28] MEDS ORDERED: Furosemide 10 MG / ML 2ML Vial IV SCH (14:00)
[2024-10-28 16:39] VITALS: BP 99/57
--- NOTE | 2024-10-28 18:32 | NUR ---
SHIFT SUMMARY PT IS A/OX3, CONFUSION AND FORGETFUL AT TIMES. POSITIVE BLOOD CULTURES. PURWICK REMOVED THIS AFTERNOON, PT IS A 2 PERSON MAX ASSIST TO BSC, CONT/INCONT OF BLADDER. URINE IS DARK/TEA COLORED. ON 2L NC, RA AT BASELINE, O2 SATS MAINTAINING >95% USING CONT PULSE OX. PT REPORTS DYSPNEA WITH EXERTION. ON TELE RUNNING AFIB IN THE 80-90'S. CONTINUING IV ANTIBIOTICS AND IV LASIX. BLE EDEMATOUS AND WEEPING. PT CALLS APPROPRIATELY USING THE CALL LIGHT.
--- NOTE | 2024-10-28 19:29 | NUR ---
AWAKE, ATTEMPTS TO GET OOB WITH 2 PERSON ASSIST TO GO TO BEDSIDE COMMODE. ATTEMPTS UNSUCCCESSFUL, HIGH FALL RISK, PURE WICK PLACED FOR DAFEATY. PT REQUESTED IT WELL. CALL LIGHT IN REACH.
[2024-10-28 19:39] VITALS: BP 88/65
[2024-10-29 01:03] VITALS: BP 103/69
--- NOTE | 2024-10-29 03:21 | NUR ---
UX MANAGER SUMMARY BP WAS LOW FIRST PART OF SHIFT, THEN TRENDED UPWARD TO NORMAL (SEE DOC FLOW SHEETS). ASYMPTOMATIC. IV ANTIBIOTICS INFUSING ORDERED AFTER NEW IV PLACED. DIURESING WITH LASIX, VOICED DIFICULTY GETTING OOB TO VOID, EVEN DIFFICULT WITH 2 PERSON ASSIST. PUREWICK PLACED AND IS WORKING WELL - JERRICA URINE OUTPUT. LUNG SOUNDS DIMINISHED. HOB ELEVATED AND FEET ELEVATED ON PILLOWS. HAS BEEN RESTING QUIETLY WITH FEW INTERRUPTIONS, BUT DID AWAKEN AND CALL OUT. WHEN ASKED IF SHE WAS OK, SHE SAID YES BUT WAS SCARED WHEN AWAKENING. HAS BEEN BACK TO SLEEP, RESTING QUIETLY AT THIS TIME. REPOSITIONED INTERMITTENTLY. CALL LIGHT IN REACH, RAILS UP X 2 AND BED IN LOW POSITION FOR SAFETY. WILL CONT TO MONITOR.
[2024-10-29 05:04] VITALS: BP 122/95
[2024-10-29 05:43] LABS: Hematocrit 29.1 % (33.0-51.0); Hemoglobin 10.1 g/dL (11.5-16.0); Mean Corpuscular HGB 33.8 pg (26.0-34.0); Mean Corpuscular HGB Conc 34.7 g/dL (31.5-36.5); Mean Corpuscular Volume 97 fL (80-100); Mean Platelet Volume 10.9 fL (9.1-12.4); Platelet Count 141 K/mm3 (150-400); RDW Coefficient Variation 15.2 % (11.7-14.2); RDW Standard Deviation 54.2 fL (35.1-46.3); Red Blood Cell Count 2.99 M/mm3 (3.80-5.20); White Blood Cell Count 7.35 K/mm3 (4.00-11.30)
[2024-10-29 06:51] LABS: Bun/Creatinine Ratio 32.8 (12.0-20.0); Calcium, Blood 8.5 mg/dL (8.5-10.1); Creatinine, Blood 0.61 mg/dL (0.40-1.00); Potassium, Blood 3.3 mmol/L (3.5-5.5)
[2024-10-29 07:54] VITALS: BP 91/68
[2024-10-29] MEDS ORDERED: Spironolactone 50 MG Tab PO SCH (08:00)
[2024-10-29] MEDS ORDERED: Potassium Chloride 10 Meq Tablet SA PO SCH (08:30)
[2024-10-29] MEDS ORDERED: Lactobacil 2-S.Thermo-Bifido 1 1 Cap PO SCH (09:00)
[2024-10-29 12:17] VITALS: BP 96/62
[2024-10-29 15:28] VITALS: BP 112/70
--- NOTE | 2024-10-29 17:10 | NUR ---
SHIFT SUMMARY PT IS A/OX3, CONFUSION AND FORGETFUL AT TIMES. 1-2 PERSON ASSIST TO BSC WITH FWW. PT WORKED WITH PHYSICAL THERAPY THIS SHIFT. ENCOURAGING AMBULATING TO BSC, PT IS NONCOMPLIANT AT TIMES TO AMBULATE TO BSC AND STATES SHE JUST WANTS TO USE THE [place], PT EDUCATED AND REMINDED ON THE IMPORTANCE OF AMBULATING. PT IS CONT/INCONT OF BLADDER. CONTINUING ABX THERAPY AND IV LASIX. PT CONTINUES TO EXPERIENCE WEEPING EDEMA TO THE BILAT LOWER EX. ON RA THROUGHOUT THIS SHIFT WITH O2 SATS MAINTAINING >95% USING CONT PULSE OX. PT CALLS APPROPRIATELY USING THE CALL LIGHT.
[2024-10-29 21:04] VITALS: BP 95/65
[2024-10-29] MEDS ORDERED: Furosemide 10 MG / ML 2ML Vial IV ONE (22:45)
[2024-10-30 01:02] VITALS: BP 90/60
--- NOTE | 2024-10-30 03:11 | NUR ---
MANAGER CONTROL SUMMARY BP LOW NORMAL, OTHERWISE VSS. LEG ELEVATED AND WILL CONT TO MONITOR. ALERT AND ORIENTED, BUT OCCASIONAL CALLING OUT, VOICED FELT CONFUSED. MED TELE A FIB IN THE 70'S. IV ANTIBIOTICS ADMIN. PT REQUESTED NO DARRELL MCDONALD MD REVIEWED BP AND HELD MIDNIGHT DOSE. INCONT OF URINE A FEW TIMES. HAS BEEN RESTING QUIETLY OTHERWISE. CALL LIGHT IN REACH, RAILS UP X 2 AND BED IN LOW POSITION FOR SAFETY. REASURRANCE GIVEN NEEDED FOR PT COMFORT. WILL CONT TO MONITOR
[2024-10-30 06:14] VITALS: BP 108/73
[2024-10-30 07:04] LABS: Albumin, Blood 2.3 g/dL (3.4-5.0); Albumin/Globulin Ratio 0.6 (0.8-1.8); Bilirubin, Total 3.6 mg/dL (0.1-1.0); Bun/Creatinine Ratio 38.9 (12.0-20.0); Calcium, Blood 7.8 mg/dL (8.5-10.1); Creatinine, Blood 0.59 mg/dL (0.40-1.00); Globulin, Blood 4.1 g/dL (2.2-4.0); Potassium, Blood 3.4 mmol/L (3.5-5.5); Total Protein, Blood 6.4 g/dL (6.4-8.2)
[2024-10-30 07:16] VITALS: BP 111/78
[2024-10-30] MEDS ORDERED: Potassium Chloride 10 Meq Tablet SA PO SCH (08:00)
[2024-10-30 08:30] LABS: HEPATITIS A ANTIBODY, IGM Negative (Negative); HEPATITIS B CORE ANTIBODY, IGM Negative (Negative); HEPATITIS B SURFACE ANTIGEN Negative (Negative); HEPATITIS C AB CIA INTERP Negative (Negative); HEPATITIS C ANTIBODY CIA INDEX 0.11 IV
[2024-10-30 08:54] LABS: BASOPHILS ABSOLUTE AUTO 0.05 K/mm3 (0.00-0.23); BASOPHILS PERCENT AUTO 1 % (0-2); EOSINOPHILS ABSOLUTE AUTO 0.08 K/mm3 (0.00-0.68); EOSINOPHILS PERCENT AUTO 1 % (0-6); Hematocrit 29.7 % (33.0-51.0); Hemoglobin 10.1 g/dL (11.5-16.0); IMMATURE GRAN ABSOLUTE AUTO 0.05 K/mm3 (0.00-0.10); IMMATURE GRAN PERCENT AUTO 1 % (0-1); LYMPHOCYTES ABSOLUTE AUTO 1.15 K/mm3 (0.84-5.20); LYMPHOCYTES PERCENT AUTO 17 % (21-46); MONOCYTES ABSOLUTE AUTO 0.68 K/mm3 (0.16-1.47); MONOCYTES PERCENT AUTO 10 % (4-13); Mean Corpuscular HGB 33.1 pg (26.0-34.0); Mean Corpuscular Volume 97 fL (80-100); Mean Platelet Volume 10.8 fL (9.1-12.4); NEUTROPHILS ABSOLUTE AUTO 4.91 K/mm3 (1.96-9.15); NEUTROPHILS PERCENT AUTO 71 % (41-73); Platelet Count 133 K/mm3 (150-400); RDW Coefficient Variation 15.5 % (11.7-14.2); RDW Standard Deviation 54.7 fL (35.1-46.3); Red Blood Cell Count 3.05 M/mm3 (3.80-5.20); White Blood Cell Count 6.92 K/mm3 (4.00-11.30)
[2024-10-30] MEDS ORDERED: Spironolactone 25 MG Tab PO SCH (09:00)
[2024-10-30] MEDS ORDERED: Midodrine 5 MG Tab PO PRN (11:55)
[2024-10-30 13:30] VITALS: BP 98/72
[2024-10-30] MEDS ORDERED: MIRALAX17 GM PO (13:47)
[2024-10-30] MEDS ORDERED: MIDO5 PO (13:47)
[2024-10-30] MEDS ORDERED: MULVITA PO (13:47)
[2024-10-30] MEDS ORDERED: Furosemide 10 MG / ML 2ML Vial IV SCH (16:00)
--- NOTE | 2024-10-30 16:20 | NUR ---
DISCHARGE SUMMARY PATIENT EDUCATED ON DISCHARGE INSTRUCITONS. REPORT CALLED TO VINCE AT [facility]. RODRIGUEZ CATHETER WAS PLACED THIS AM AND REMOVED PRIOR TO D/C. IV REMOVED. BELONGINGS GATHERED AND RETURNED. PATIENT UNSURE IF SHE HAD BROUGHT PURSE WITH HER TO HOSPITAL BUT IS NOT HERE IN HER ROOM OR LOCKED AWAY. TRANSPORTATION ARRANGED VIA WHEELCHAIR. PATIENT ANXIOUS ABOUT SUDDEN DISCHARGE BUT NO NEW QUESTIONS OR CONCERNS PRIOR TO D/C
== END 2024-10-30 15:37 | DRG 432 ==
LOC: ER 01:01 → MEDS 03:33
PROVIDERS: Emergency Medicine; Registered Nurse; Student in an Organized Health Care Education/Training Program; ADMIT Internal Medicine
DX: K70.31 Alcoholic cirrhosis of liver with ascites (principal); I50.33 Acute on chronic diastolic (congestive) heart failure; L03.116 Cellulitis of left lower limb; I48.20 Chronic atrial fibrillation, unspecified; E87.1 Hypo-osmolality and hyponatremia; Z60.2 Problems related to living alone; I11.0 Hypertensive heart disease with heart failure; E16.A1 Hypoglycemia level 1; L89.311 Pressure ulcer of right buttock, stage 1; D64.9 Anemia, unspecified; Z91.148 Patient's other noncompliance with medication regimen for other reason; M19.90 Unspecified osteoarthritis, unspecified site; I87.2 Venous insufficiency (chronic) (peripheral); Z79.01 Long term (current) use of anticoagulants; Z79.899 Other long term (current) drug therapy; Z85.3 Personal history of malignant neoplasm of breast; Z98.890 Other specified postprocedural states; Z88.8 Allergy status to other drugs, medicaments and biological substances; Z87.891 Personal history of nicotine dependence
CPT/HCPCS: 36415; 71045; 76705; 80048; 80053; 80074; 80320; 81001; 82947; 83605; 83735; 83880; 84100; 85025; 85027; 85610; 87040; 87077; 87086; 87186; 93005; 93010; 93308; 93321; 93971; 94760; 94762; 97110; 97161; 97165; 97530; 99285-25; A9270; J0690; J1940; J7030; J7040

== ENCOUNTER 2025-05-06 19:01 | Emergency (ER) | payer MEDICARE, OTHER ==
[~2025-05-06] VITALS: Ht 162.6 cm; Wt 84.4 kg
[~2025-05-06 19:01] MED LIST changes: +Aspir 8181 MG PO; +MIDO5 PO; +MIRALAX17 GM PO
[2025-05-06 19:30] VITALS: BP 118/68
[2025-05-06] MEDS ORDERED: AFRIN15 M6 (19:53)
== END 2025-05-06 21:05 | disposition home or self-care (01) ==
LOC: ER 19:01
DX: R04.0 Epistaxis (principal); I11.0 Hypertensive heart disease with heart failure; I50.30 Unspecified diastolic (congestive) heart failure; I48.20 Chronic atrial fibrillation, unspecified; Z88.8 Allergy status to other drugs, medicaments and biological substances; Z79.01 Long term (current) use of anticoagulants; Z79.82 Long term (current) use of aspirin; Z79.899 Other long term (current) drug therapy; Z87.891 Personal history of nicotine dependence
CPT/HCPCS: 99283

== ENCOUNTER 2025-05-08 19:19 | Emergency (ER) | payer MEDICARE, OTHER ==
[~2025-05-08] VITALS: Ht 160 cm; Wt 84.4 kg
[~2025-05-08 19:19] MED LIST changes: +AFRIN15 M6
[2025-05-08 20:03] VITALS: BP 135/75
[2025-05-08] MEDS ORDERED: Oxymetazoline 0.05% Nasal Relief Spray 15mL BTL ONE (20:30)
== END 2025-05-08 22:08 | disposition home or self-care (01) ==
LOC: ER 19:19
DX: R04.0 Epistaxis (principal); I48.91 Unspecified atrial fibrillation; I11.0 Hypertensive heart disease with heart failure; I50.30 Unspecified diastolic (congestive) heart failure; M19.90 Unspecified osteoarthritis, unspecified site; Z87.891 Personal history of nicotine dependence; Z79.01 Long term (current) use of anticoagulants; Z79.82 Long term (current) use of aspirin; Z79.899 Other long term (current) drug therapy; Z88.8 Allergy status to other drugs, medicaments and biological substances
CPT/HCPCS: 99283; A9270

== ENCOUNTER 2025-08-15 19:41 | Emergency (ER) | payer MEDICARE, OTHER ==
[~2025-08-15] VITALS: Ht 157.5 cm; Wt 90.7 kg
[2025-08-15] MEDS ORDERED: Oxymetazoline 0.05% Nasal Relief Spray 15mL BTL ONE (20:15)
[2025-08-15] MEDS ORDERED: Tranexamic Acid 100 ML IV ONE (22:10)
[2025-08-15 22:42] VITALS: BP 116/63
== END 2025-08-16 05:09 | disposition home or self-care (01) ==
LOC: ER 19:41
DX: R04.0 Epistaxis (principal); R00.0 Tachycardia, unspecified; I48.20 Chronic atrial fibrillation, unspecified; I11.0 Hypertensive heart disease with heart failure; I50.30 Unspecified diastolic (congestive) heart failure; Z87.891 Personal history of nicotine dependence; Z88.8 Allergy status to other drugs, medicaments and biological substances; Z79.01 Long term (current) use of anticoagulants; Z79.82 Long term (current) use of aspirin; Z79.899 Other long term (current) drug therapy; Z59.89 Other problems related to housing and economic circumstances
CPT/HCPCS: 30903; 96374-59; 99283-25; A9270

== ENCOUNTER 2025-08-18 11:45 | Emergency (ER) | payer MEDICARE, OTHER ==
[~2025-08-18] VITALS: Ht 167.6 cm; Wt 81.7 kg
[2025-08-18] MEDS ORDERED: Oxymetazoline 0.05% Nasal Relief Spray 15mL BTL ONE (12:45)
[2025-08-18] MEDS ORDERED: Tranexamic Acid 1000 MG/10 ML 10ML Vial (SDV) ONE (12:50)
[2025-08-18 19:30] VITALS: BP 148/87
== END 2025-08-18 19:34 | disposition home or self-care (01) ==
LOC: ER 11:45
DX: R04.0 Epistaxis (principal); I48.91 Unspecified atrial fibrillation; I11.0 Hypertensive heart disease with heart failure; Z88.8 Allergy status to other drugs, medicaments and biological substances; Z79.82 Long term (current) use of aspirin; Z79.899 Other long term (current) drug therapy; Z87.891 Personal history of nicotine dependence
CPT/HCPCS: 30903; 99282-25; A9270

== ENCOUNTER 2025-08-21 09:50 | Emergency (ER) | payer MEDICARE, OTHER ==
[~2025-08-21] VITALS: Ht 157.5 cm; Wt 95.2 kg
[2025-08-21 10:44] VITALS: BP 134/115
== END 2025-08-21 12:17 | disposition home or self-care (01) ==
LOC: ER 09:50
DX: Z46.89 Encounter for fitting and adjustment of other specified devices (principal); I48.20 Chronic atrial fibrillation, unspecified; I11.0 Hypertensive heart disease with heart failure; I50.30 Unspecified diastolic (congestive) heart failure; Z88.8 Allergy status to other drugs, medicaments and biological substances; Z79.899 Other long term (current) drug therapy
CPT/HCPCS: 99282

== ENCOUNTER 2025-08-29 06:09 | Emergency (ER) | payer MEDICARE, OTHER ==
[~2025-08-29] VITALS: Ht 162.6 cm; Wt 86.2 kg
[2025-08-29] MEDS ORDERED: Oxymetazoline 0.05% Nasal Relief Spray 15mL BTL STA (06:38)
[2025-08-29 09:30] VITALS: BP 119/71
== END 2025-08-29 10:13 | disposition home or self-care (01) ==
LOC: ER 06:09
DX: R04.0 Epistaxis (principal); I11.0 Hypertensive heart disease with heart failure; I50.30 Unspecified diastolic (congestive) heart failure; E03.9 Hypothyroidism, unspecified; Z87.891 Personal history of nicotine dependence; Z79.82 Long term (current) use of aspirin; Z79.899 Other long term (current) drug therapy; Z88.8 Allergy status to other drugs, medicaments and biological substances
CPT/HCPCS: 30901; 99283-25; A9270

== ENCOUNTER 2025-09-05 14:05 | Emergency (ER) | payer MEDICARE, OTHER ==
[~2025-09-05] VITALS: Ht 157.5 cm; Wt 84.4 kg
[2025-09-05 14:21] VITALS: BP 129/63
== END 2025-09-05 16:14 | disposition home or self-care (01) ==
LOC: ER 14:05
DX: Z48.00 Encounter for change or removal of nonsurgical wound dressing (principal); I48.91 Unspecified atrial fibrillation; I10 Essential (primary) hypertension; M19.90 Unspecified osteoarthritis, unspecified site; Z79.899 Other long term (current) drug therapy; Z79.01 Long term (current) use of anticoagulants
CPT/HCPCS: 99282